=== PATIENT | male | born 1940 | race African-American/Black ===

== ENCOUNTER 2024-04-05 15:41 | Inpatient (IN) ==
--- NOTE | 2024-04-05 15:52 | ED Triage Note ---
Date of Service April 05, 2024 Provider in Triage Author: Cody Perez History of Present Illness This patient was briefly evaluated while in triage. An abbreviated physical exam was performed. This patient is a 83-year-old Male, history of congestive heart failure and atrial fibrillation, who presents to the ED for evaluation of ongoing shortness of breath that has worsened over the past 4 nights. The patient reports that he was admitted 2 months ago for heart failure. Patient does not wear any oxygen at home. The patient is on a diuretic. The patient had a chest x-ray on Tuesday. The does have chest x-ray report, showing dense opacification and possible collapse of the right middle lobe. There were also dense opacification throughout the majority of the right lower lobe with air bronchograms. There is mild to moderate right pleural effusion. CT scan of the chest was recommended. Patient had a cardiac cath performed in August that was normal, with echo showing cardiomyopathy. Physical Exam CONSTITUTIONAL: Healthy and well nourished. Patient does not appear in any acute distress. HEENT: No scleral icterus or conjunctival injection. RESPIRATORY: Decreased breath sounds on the right side. CARDIOVASCULAR: Regular rate and rhythm with no murmurs, rubs or gallops. GASTROINTESTINAL: Bowel sounds present in all quadrants. Abdomen is soft and nontender to palpation. MUSCULOSKELETAL: Full range of motion of all joints without discomfort. No significant peripheral edema noted. INTEGUMENTARY: No rash or other significant dermatologic conditions noted. HEMATOLOGIC: No ecchymosis or petechiae. PSYCHIATRIC: Positive affect. NEUROLOGIC: No focal neurologic deficits noted. Initial orders for labs and / or imaging were placed and patient was placed in the waiting area until a bed is available. Please see further documentation for the full ED course.
[2024-04-05 16:25] LABS: Basophils # (auto) 0.02 K/uL (0.00-0.20); Basophils % (auto) 0.4 %; Eosinophils # (auto) 0.03 K/uL (0.00-0.50); Eosinophils % (auto) 0.6 %; Hematocrit (blood only) 47.4 % (42.0-52.0); Hemoglobin 16.8 g/dl (14.0-18.0); Immature Granulocytes # (auto) 0.01 K/uL (0.01-0.20); Immature Granulocytes % (auto) 0.2 %; Lymphocytes # (auto) 0.78 K/uL (1.20-3.40); Lymphocytes % (auto) 14.3 %; Mean Corpuscular Hemoglobin 29.5 pg (25.0-34.0); Mean Corpuscular Hgb Conc 35.4 g/dL (32.0-36.0); Mean Corpuscular Volume 83.3 fL (80.0-100.0); Mean Platelet Volume 11.4 fL (9.4-12.4); Monocytes % (auto) 7.3 %; Neutrophils # (auto) 4.21 K/uL (1.40-6.50); Neutrophils % (auto) 77.2 %; Nucleated RBC # (auto) 0.02 K/uL (0.00-0.12); Nucleated RBC % (auto) 0.4 %; Platelet Count 167 K/uL (130-400); RDW Coefficient of Variation 17.3 % (11.5-14.5); RDW Standard Deviation 51.6 fL (36.4-46.3); Red Blood Count 5.69 M/uL (4.70-6.10); White Blood Count 5.45 K/ul (4.8-10.8)
[2024-04-05 16:42] LABS: Alanine Aminotransferase 35 U/L (7-52); Albumin Globulin Ratio 1.7 (0.9-2); Albumin Level 3.8 gm/dl (3.4-5.0); Alkaline Phosphatase 134 U/L (34-104); Anion Gap 7 (3-11); Aspartate Aminotransferase 39 U/L (13-39); BUN Creatinine Ratio 18.8 (10-20); Bilirubin,Total 1.2 mg/dl (0.2-1.0); Blood Urea Nitrogen 40 mg/dl (6-23); Carbon Dioxide 28 mmol/L (21-32); Chloride 98 mmol/L (98-107); Globulin 2.3 gm/dl (2.5-4.0); Glucose 124 mg/dl (70-99(Fasting)); Magnesium 2.1 mg/dl (1.7-2.4); Potassium 4.5 mmol/L (3.5-5.1); Sodium 133 mmol/L (136-145); Total Protein 6.1 gm/dl (6.0-8.3)
[2024-04-05 16:53] LABS: INR 1.1 (0.9-1.1); Partial Thromboplastin Ratio 1.1; Partial Thromboplastin Time 29 Seconds (21-31); Prothrombin Time 12.2 Seconds (9.0-12.0); Troponin I High Sensitivity 50.9 pg/ml (0-20)
--- NOTE | 2024-04-05 17:27 | CT Scan Report ---
EXAMINATION: Abdomen and pelvis CT without CLINICAL HISTORY: Chest pain, CHF PRIORS: None TECHNIQUE: Contiguous axial images were obtained through the abdomen and pelvis without the use of intravenous contrast. Sagittal and coronal reformations are supplied. FINDINGS: Large bilateral pleural effusions present at the edge of the [id number], right greater than left. Anasarca noted. Evaluation of solid organs is limited without the use of intravenous contrast. Allowing for this, the liver has heterogeneous appearance with possible nodular margin which could suggest cirrhosis. Mild ascites is present. The gallbladder contains high density material and is not further characterized. The pancreas is atrophic and unremarkable. Spleen, stomach and adrenals are morphologically unremarkable. Moderate atherosclerotic disease of the abdominal aorta. Kidneys are atrophic with no hydronephrosis. Moderate circumferential urinary bladder wall thickening is present with perivesicular inflammatory change. Small amount of free fluid present in the pelvis. Chest CT without A moderate amount of formed stool present in the colon. No dilated loops of bowel or pericolonic inflammatory change. No significant diverticulosis. A discrete appendix is not identified. Small bilateral inguinal hernias containing fat. In bone windows, moderate osseous demineralization noted. Advanced degenerative change throughout the lumbar spine with lordotic straightening. No high-grade compression fracture. IMPRESSION: 1. CT features which may suggest hepatic cirrhosis with mild ascites and diffuse body wall edema/anasarca. 2. Circumferential urinary bladder wall thickening with perivesicular inflammatory change which could represent acute cystitis in the proper clinical setting. 3. Large bilateral pleural effusions. Chest CT dictated under separate heading. Electronically signed by Jael Gilliland 04-05-2024 5:26 PM
--- NOTE | 2024-04-05 17:28 | CT Scan Report ---
EXAMINATION: Chest CT without CLINICAL HISTORY: Chest pain, CHF, abnormal chest x-ray COMPARISON: None TECHNIQUE: Contiguous axial images were obtained through the chest without the use of intravenous contrast. Sagittal and coronal reformations are supplied. FINDINGS: Large right and moderate left pleural effusions are present. Compressive atelectasis is noted. Bilateral lungs upper lobes are unremarkable. Heart size is moderately enlarged. A left-sided aortic arch is present with moderate atherosclerotic disease of the aorta and coronary arteries. A trace pericardial effusion noted. The trachea and mainstem bronchi are patent. No radiopaque foreign body. No adenopathy in the chest. Gas present in the esophagus lumen. Body wall edema/anasarca is present. No supraclavicular or axillary adenopathy. Fluid surrounding the right shoulder, likely degenerative change with [id number] appearance of the glenohumeral joint. In bone windows mild kyphosis and osseous demineralization. Multilevel anterior bridging osteophytes noted. No fracture or pneumothorax. IMPRESSION: 1. Large right and moderate left pleural effusions with compressive atelectasis. 2. Moderate enlargement of the heart with aortic and coronary artery atherosclerotic disease. 3. Anasarca. Electronically signed by Jael Gilliland 04-05-2024 5:26 PM
--- NOTE | 2024-04-05 18:52 | Emergency Department Note ---
Impression & Plan CHF exacerbation, Bilateral pleural effusion, Acute dyspnea, Advanced cirrhosis of liver, Anasarca, CKD (chronic kidney disease) ED Provider Note NAME: TED ROGERS AGE: 83 SEX: M : 1940 ARRIVES VIA: Walk-In INFORMANT: Patient, ED PROVIDER(S): Mable Vila MD CHIEF COMPLAINT: Shortness of breath HPI: This is a 83-year-old male presenting for shortness breath. Patient with history of CHF with EF 20 to 30%, CKD, cirrhosis. Notes over the past 4 nights he is at worsening shortness of breath produce had a cough about 1 month. Had an x-ray that showed a pleural effusion. He came to the hospital as he had worsening shortness of breath, orthopnea and exertional dyspnea. He is noted leg swelling bilaterally as well. ROS: See above HPI for pertinent positives & negatives. A total of 10 systems reviewed and were otherwise negative. PAST MEDICAL HISTORY: See Below PAST SURGICAL HISTORY: See Below FAMILY HISTORY: See Below SOCIAL HISTORY: See Below HOME MEDICATIONS: See Below ALLERGIES: See Below VITALS: See Below PHYSICAL EXAMINATION: General: Chronically unwell appearing Head: Normocephalic and atraumatic Eyes: Normal inspection, extraocular muscles intact Ear, nose, throat: Normal external exam Neck: Normal range of motion Respiratory: lungs clear to auscultation bilaterally Cardiovascular: Regular rate/rhythm, no murmur GI: soft, nontender, no guarding or rebound Extremities: nontender, moves all extremities, slight edema to bilateral lower extremities Neuro: The patient awake and alert, appropriately conversive, no focal deficits, symmetric faces Skin: Warm, dry, and intact MEDICAL DECISION MAKING: This is an 83-year-old male presenting for shortness of breath. Patient had CT imaging ordered at triage. Blood was also ordered at this time. -No leukocytosis or anemia. He slightly hyponatremic at 133, creatinine is 2.13, previous baseline is 2.4 as per family. Otherwise his troponin is elevated at 50.9. His BNP is higher than max limit at over 4700. Urinalysis revealed no signs of UTI -CT imaging of the chest reveals large bilateral pleural effusions as well as moderate enlargement of the heart with aortic and coronary artery atherosclerosis,anasarca -CT of the abdomen/pelvis revealed cirrhosis with anasarca -Patient likely has increased short of breath due to CHF as well as pleural effusions and anasarca. Will admit for further workup. Care discussed Dr. Butler for admission. Differential diagnosis: ACS, PE, CHF, pleural effusions, URI, cirrhosis Independent History obtained from: Diagnostics interpreted by me: ECG: ECG independently interpreted by me with atrial fibrillation at a rate of 85 normal QRS, normal QTc, no ST segment elevations consistent with STEMI criteria Cardiac Monitoring: An order was placed for continuous cardiac monitoring. The monitor shows a rate of 68 with sinus rhythm. Past Med/Surg History Problem List (Updated 04/06/24 @ 01:26 by Mable Vila MD) CKD (chronic kidney disease) (Acute) Anasarca (Acute) Advanced cirrhosis of liver (Acute) Acute dyspnea (Acute) Bilateral pleural effusion (Acute) CHF exacerbation (Acute) Medical History (Updated 04/06/24 @ 01:26 by Mable Vila MD) CHF (congestive heart failure) HTN (hypertension) with goal to be determined Atrial fibrillation Surgical History (Updated 04/05/24 @ 19:50 by Braulio Butler MD) Status post lumbar spine operative procedure for decompression of spinal cord Social History Smoking Status: Never smoker Hx Alcohol Use: No Hx Substance Use: No Preferred Language: [place] Communication Ability: Effective Clinical Support Manager Required: No Beliefs That Will Affect Care: None Current Living Situation: Spouse Current Living Situation Comment: lives at home with Other Information That Helps Us Care for You: No Feels Safe at Home: Yes Safety Concerns: Feels Safe At This Time Assistive Devices: Walker Allergies Allergies Allergy/AdvReac Type Severity Reaction Status Date / Time bee venom protein (honey bee) Allergy SKIN WELTS Verified 04/05/24 18:53 Home Meds Home Medications Medication Instructions Recorded Confirmed apixaban 2.5 mg tablet (Eliquis) 2.5 mg PO BID 04/05/24 04/05/24 bumetanide 1 mg tablet 1 mg PO QAM 04/05/24 04/05/24 metoprolol succinate 50 mg 50 mg PO TID 04/05/24 04/05/24 tablet,extended release 24 hr sacubitril 49 mg-valsartan 51 mg 0.5 tab PO BID 04/05/24 04/05/24 tablet (Entresto) Results & Data (ED) Vital Signs Vital Signs - 24 hr 04/05/24 15:47 04/05/24 18:02 04/05/24 18:02 Temperature 36.9 C Temperature Source Temporal Artery Scan Pulse Rate 102 H Pulse Rate [Apical] 85 Respiratory Rate 16 19 Respiratory Effort / Characteristics Non-Labored Non-Labored Spontaneous Respiratory Depth Normal Normal Respiratory Pattern Regular Blood Pressure 123/94 Blood Pressure [Right Arm] 109/93 Blood Pressure Mean 103 Blood Pressure Mean [Right Arm] 98 Blood Pressure Position [Right Arm] Pulse Oximetry 98 97 97 Oxygen Delivery Method Room Air Room Air Room Air Sepsis Recent Fever Within 48 Hours No Sepsis New/Unexplained Change in Mental Status N/A Sepsis Action Taken by Nursing No Action Required 04/05/24 18:02 04/05/24 18:05 04/05/24 18:43 Temperature Temperature Source Pulse Rate 81 91 H Pulse Rate [Apical] 79 Respiratory Rate 18 15 Respiratory Effort / Characteristics Non-Labored Spontaneous Respiratory Depth Normal Respiratory Pattern Regular Blood Pressure Blood Pressure [Right Arm] 113/96 Blood Pressure Mean Blood Pressure Mean [Right Arm] 101 Blood Pressure Position [Right Arm] Semi-fowlers Pulse Oximetry 96 92 Oxygen Delivery Method Room Air Room Air Sepsis Recent Fever Within 48 Hours Sepsis New/Unexplained Change in Mental Status Sepsis Action Taken by Nursing Laboratory Data 04/05/24 16:08 04/05/24 16:08 Lab Results 04/05/24 04/05/24 Range/Units 16:08 18:39 WBC 5.45 (4.8-10.8) K/ul RBC 5.69 (4.70-6.10) M/uL Hgb 16.8 (14.0-18.0) g/dl Hct 47.4 (42.0-52.0) % MCV 83.3 (80.0-100.0) fL MCH 29.5 (25.0-34.0) pg MCHC 35.4 (32.0-36.0) g/dL RDW Std Deviation 51.6 H (36.4-46.3) fL RDW Coeff of Ilya 17.3 H (11.5-14.5) % Plt Count 167 (130-400) K/uL MPV 11.4 (9.4-12.4) fL Immature Gran % (Auto) 0.2 % Neut % (Auto) 77.2 % Lymph % (Auto) 14.3 % [place] % (Auto) 7.3 % Eos % (Auto) 0.6 % Baso % (Auto) 0.4 % Neut # (Auto) 4.21 (1.40-6.50) K/uL Lymph # (Auto) 0.78 L (1.20-3.40) K/uL [place] # (Auto) 0.40 (0.11-0.59) K/uL Eos # (Auto) 0.03 (0.00-0.50) K/uL Baso # (Auto) 0.02 (0.00-0.20) K/uL Immature Gran # (Auto) 0.01 (0.01-0.20) K/uL Absolute Nucleated RBC 0.02 (0.00-0.12) K/uL Nucleated RBC % (auto) 0.4 % PT 12.2 H (9.0-12.0) Seconds INR 1.1 (0.9-1.1) APTT 29 (21-31) Seconds PTT Ratio 1.1 Sodium 133 L (136-145) mmol/L Potassium 4.5 (3.5-5.1) mmol/L Chloride 98 (98-107) mmol/L Carbon Dioxide 28 (21-32) mmol/L Anion Gap 7 (3-11) BUN 40 H (6-23) mg/dl Creatinine 2.13 H (0.6-1.4) mg/dl Est Cr Clr Drug Dosing Not Reportable eGFR 30.14 BUN/Creatinine Ratio 18.8 (10-20) Glucose 124 H (70-99(Fasting)) mg/dl Calcium 9.0 (8.6-10.3) mg/dl Magnesium 2.1 (1.7-2.4) mg/dl Total Bilirubin 1.2 H (0.2-1.0) mg/dl AST 39 (13-39) U/L ALT 35 (7-52) U/L Alkaline Phosphatase 134 H (34-104) U/L Troponin I High Sens 50.9 H* 61.5 H* D (0-20) pg/ml B-Natriuretic Peptide > 4700 H (0-100) pg/ml Total Protein 6.1 (6.0-8.3) gm/dl Albumin 3.8 (3.4-5.0) gm/dl Globulin 2.3 L (2.5-4.0) gm/dl Albumin/Globulin Ratio 1.7 (0.9-2) Administered Medications Metoprolol Succinate (Metoprolol Succ 50mg Ext Rel Tab) 50 mg PO BID ADAM Stop: 05/05/24 22:04 Last Admin: 04/05/24 23:39 Dose: Not Given Documented By: SANTIAGO Discontinued Medications Furosemide (Furosemide 40 Mg/4 Ml Vial) 40 mg IV ONE ONE Stop: 04/05/24 19:24 Last Admin: 04/05/24 19:31 Dose: 40 mg Documented By: BILL Imaging Data Radiologist's Impression: Abdomen/Pelvis CT 04/05/24 16:52 EXAMINATION: Abdomen and pelvis CT without CLINICAL HISTORY: Chest pain, CHF PRIORS: None TECHNIQUE: Contiguous axial images were obtained through the abdomen and pelvis without the use of intravenous contrast. Sagittal and coronal reformations are supplied. FINDINGS: Large bilateral pleural effusions present at the edge of the [id number], right greater than left. Anasarca noted. Evaluation of solid organs is limited without the use of intravenous contrast. Allowing for this, the liver has heterogeneous appearance with possible nodular margin which could suggest cirrhosis. Mild ascites is present. The gallbladder contains high density material and is not further characterized. The pancreas is atrophic and unremarkable. Spleen, stomach and adrenals are morphologically unremarkable. Moderate atherosclerotic disease of the abdominal aorta. Kidneys are atrophic with no hydronephrosis. Moderate circumferential urinary bladder wall thickening is present with perivesicular inflammatory change. Small amount of free fluid present in the pelvis. Chest CT without A moderate amount of formed stool present in the colon. No dilated loops of bowel or pericolonic inflammatory change. No significant diverticulosis. A discrete appendix is not identified. Small bilateral inguinal hernias containing fat. In bone windows, moderate osseous demineralization noted. Advanced degenerative change throughout the lumbar spine with lordotic straightening. No high-grade compression fracture. IMPRESSION: 1. CT features which may suggest hepatic cirrhosis with mild ascites and diffuse body wall edema/anasarca. 2. Circumferential urinary bladder wall thickening with perivesicular inflammatory change which could represent acute cystitis in the proper clinical setting. 3. Large bilateral pleural effusions. Chest CT dictated under separate heading. Electronically signed by Jael Gilliland 04-05-2024 5:[address] 04/05/24 16:52 EXAMINATION: Chest CT without CLINICAL HISTORY: Chest pain, CHF, abnormal chest x-ray COMPARISON: None TECHNIQUE: Contiguous axial images were obtained through the chest without the use of intravenous contrast. Sagittal and coronal reformations are supplied. FINDINGS: Large right and moderate left pleural effusions are present. Compressive atelectasis is noted. Bilateral lungs upper lobes are unremarkable. Heart size is moderately enlarged. A left-sided aortic arch is present with moderate atherosclerotic disease of the aorta and coronary arteries. A trace pericardial effusion noted. The trachea and mainstem bronchi are patent. No radiopaque foreign body. No adenopathy in the chest. Gas present in the esophagus lumen. Body wall edema/anasarca is present. No supraclavicular or axillary adenopathy. Fluid surrounding the right shoulder, likely degenerative change with [id number] appearance of the glenohumeral joint. In bone windows mild kyphosis and osseous demineralization. Multilevel anterior bridging osteophytes noted. No fracture or pneumothorax. IMPRESSION: 1. Large right and moderate left pleural effusions with compressive atelectasis. 2. Moderate enlargement of the heart with aortic and coronary artery atherosclerotic disease. 3. Anasarca. Electronically signed by Jael Gilliland 04-05-2024 5:26 PM Discharge Plan Visit Data Chief Complaint: Cardiac Assessment Stated Complaint: SOB, AFIB, WEAK, CANNOT STAND ED Provider: Mable Vila Discharge Problem: CHF exacerbation, Bilateral pleural effusion, Acute dyspnea, Advanced cirrhosis of liver, Anasarca, CKD (chronic kidney disease) Patient Disposition: Admitted As Inpatient Discharge Instructions Interventions: ED Discharge Assessment Last Done: 04/05/24 21:39
[2024-04-05] MEDS ORDERED: POLYETHYLENE (MIRALAX) 17 GM PACK PO PRN (19:25)
[2024-04-05] MEDS: FUROSEMIDE 40 MG/4 ML VIAL IV ONE (19:31)
--- NOTE | 2024-04-05 19:35 | History & Physical Report ---
Date of Service April 05, 2024 Assessment & Plan (1) CHF (congestive heart failure): Plan: Acute on chronic HFrEF Pleural effusion b/l Afib Reportedly diagnosed with Afib in August 2023 on Eliquis, metoprolol previously on amiodarone - reportedly stopped d/t perceived weakness, LE edema worsening EF 15% in August 2023 --> improved to 25-30% in October, on metoprolol succinate, entresto, bumex Presents w/ b/l pl. effusion and worsening shortness of breath hold po bumex, start IV lasix hold eliquis for now, consider poss. thoracentesis - will discuss w/ cardiology and pulmonary med. hold entresto for now obtain BNP repeat CXR AM closely monitor on tele Echo ordered Cardiology consult monitor I/Os, daily weight replace electrolytes as needed will also obtain fasting lipid panel and A1c Hx SHEILA - cpap hs CKD Cr worsening over time pt does not follow w/ nephrology Cr 2.1 on 02/27 currently 2.1 - cont. to closely monitor renal function while diuresing History of Present Illness Chief Complaint: Shortness of breath, CHF, pl. effusion Primary Care Provider: Perri Cortez Pt is an 83 yo M w/ hx of HTN, Afib, CHF, SHEILA who presents with worsening shortness of breath, weakness and found to have pleural effusions on imaging in ED . Pt denies any fever, chills, chest pain. He reports some cough, that is not productive. Family obtained from patient and his who also has some printed medical records with her. Reportedly pt has had HTN for years but then in august 2023 developed Afib and was hospitalized in [place] 08/27 to 2023. Pt reports they tried to cardiovert him but not successful and he has stayed in [facility] ever since. Cardiac cath was done but no stents required per and the pt. At that time EF was found to be 15%. He was discharged on Eliquis, metoprolol, digoxin and lasix. He then followed up with cardiology in [place] in October and his EF reportedly improved to 25-30%. Pt changed cardiology group and started to follow w/ Dr. Carter. He was started on amiodarone and Entresto, spironolactone. Pt also had sleep study done and reportedly was diagnosed w/ severe SHEILA and started using CPAP. Pt stopped taking spironolactone d/t side effects. He also reports increased weakness and LE edema from amiodarone - and so that was stopped by cardiology PA on 03/01. Pt also reports that lately his HR was elevated and so he was taking metoprolol succinate 50 mg TID instead of BID. Throughout this his renal function also has been affected. Per records review on 09/15 Cr was 1.4, then 01/18 it was 1.7 and on 02/27 it was 2.1. Pt is supposed to use CPAP for SHEILA but reports he has been having difficulty tolerating it, so for 3-4 weeks he would use it on and off and then for past 4 days he would not use it at all. Pt follows w/ PCP Dr. Cortez and had CXR done on Tuesday which reportedly showed dense opacification and poss. collapse of RML, and R pl. effusion. CT chest / abdomen was planned to be done as outpt however pt had progressive shortness of breath and so presented in the ED. CT chest and abdomen/pelvis was obtained in the ED today. Allergies Allergy/AdvReac Type Severity Reaction Status Date / Time bee venom protein (honey bee) Allergy SKIN WELTS Verified 04/05/24 18:53 Home Medications Medication Instructions Recorded Confirmed Type apixaban 2.5 mg tablet (Eliquis) 2.5 mg PO BID 04/05/24 04/05/24 History bumetanide 1 mg tablet 1 mg PO QAM 04/05/24 04/05/24 History metoprolol succinate 50 mg 50 mg PO TID 04/05/24 04/05/24 History tablet,extended release 24 hr sacubitril 49 mg-valsartan 51 mg 0.5 tab PO BID 04/05/24 04/05/24 History tablet (Entresto) Past Med/Surg History Problem List Medical History (Updated 04/05/24 @ 19:49 by Braulio Butler MD) CHF (congestive heart failure) HTN (hypertension) with goal to be determined Atrial fibrillation Surgical History (Updated 04/05/24 @ 19:50 by Braulio Butler MD) Status post lumbar spine operative procedure for decompression of spinal cord Social History Smoking Status: Never smoker Preferred Language: Yakut Feels Safe at Home: Yes Review of Systems Review of Systems: All systems reviewed & are unremarkable except as noted in Subjective Physical Exam Constitutional: WD/WN, vitals as above (obese M) Eyes: PERRL, conjunctivae normal, anicteric sclerae ENMT: external ear and nose normal, oropharynx normal Neck: + thick neck Respiratory: Auscultation: + crackles (at bases) Cardiovascular: Rate/Rhythm: + irregularly irregular Gastrointestinal (Abdomen): Inspection/Auscultation: normal bowel sounds Percussion/Palpation: abdomen soft (obese); abdomen nontender Musculoskeletal: LE edema, b/l, moves extremities Skin: no rashes, warm and dry Neurologic: PERRL, EOMI, accommodation nl, no face palsy, no dysarthria Psychiatric: A+Ox3, euthymic affect Lymphatic: + lymphedema Results & Data Results & Data Vital Signs (Past 12 Hours) Vital Signs Temp Pulse Pulse Resp BP BP Pulse Ox 04/05/24 18:43 79 15 113/96 92 04/05/24 18:05 91 H 04/05/24 18:02 81 18 96 04/05/24 18:02 85 19 109/93 97 04/05/24 18:02 97 04/05/24 15:47 36.9 C 102 H 16 123/94 98 O2 Del Method 04/05/24 18:43 Room Air 04/05/24 18:05 04/05/24 18:02 Room Air 04/05/24 18:02 Room Air 04/05/24 18:02 Room Air 04/05/24 15:47 Room Air Laboratory Results 04/05/24 04/05/24 Range/Units 18:39 16:08 WBC 5.45 (4.8-10.8) K/ul RBC 5.69 (4.70-6.10) M/uL Hgb 16.8 (14.0-18.0) g/dl Hct 47.4 (42.0-52.0) % MCV 83.3 (80.0-100.0) fL MCH 29.5 (25.0-34.0) pg MCHC 35.4 (32.0-36.0) g/dL RDW Std Deviation 51.6 H (36.4-46.3) fL RDW Coeff of Ilya 17.3 H (11.5-14.5) % Plt Count 167 (130-400) K/uL MPV 11.4 (9.4-12.4) fL Immature Gran % (Auto) 0.2 % Neut % (Auto) 77.2 % Lymph % (Auto) 14.3 % [place] % (Auto) 7.3 % Eos % (Auto) 0.6 % Baso % (Auto) 0.4 % Neut # (Auto) 4.21 (1.40-6.50) K/uL Lymph # (Auto) 0.78 L (1.20-3.40) K/uL [place] # (Auto) 0.40 (0.11-0.59) K/uL Eos # (Auto) 0.03 (0.00-0.50) K/uL Baso # (Auto) 0.02 (0.00-0.20) K/uL Immature Gran # (Auto) 0.01 (0.01-0.20) K/uL Absolute Nucleated RBC 0.02 (0.00-0.12) K/uL Nucleated RBC % (auto) 0.4 % PT 12.2 H (9.0-12.0) Seconds INR 1.1 (0.9-1.1) APTT 29 (21-31) Seconds PTT Ratio 1.1 Sodium 133 L (136-145) mmol/L Potassium 4.5 (3.5-5.1) mmol/L Chloride 98 (98-107) mmol/L Carbon Dioxide 28 (21-32) mmol/L Anion Gap 7 (3-11) BUN 40 H (6-23) mg/dl Creatinine 2.13 H (0.6-1.4) mg/dl Est Cr Clr Drug Dosing Not Reportable eGFR 30.14 BUN/Creatinine Ratio 18.8 (10-20) Glucose 124 H (70-99(Fasting)) mg/dl Calcium 9.0 (8.6-10.3) mg/dl Magnesium 2.1 (1.7-2.4) mg/dl Total Bilirubin 1.2 H (0.2-1.0) mg/dl AST 39 (13-39) U/L ALT 35 (7-52) U/L Alkaline Phosphatase 134 H (34-104) U/L Troponin I High Sens 61.5 H* D 50.9 H* (0-20) pg/ml Total Protein 6.1 (6.0-8.3) gm/dl Albumin 3.8 (3.4-5.0) gm/dl Globulin 2.3 L (2.5-4.0) gm/dl Albumin/Globulin Ratio 1.7 (0.9-2) Diagnostic Findings CT chest IMPRESSION: 1. Large right and moderate left pleural effusions with compressive atelectasis. 2. Moderate enlargement of the heart with aortic and coronary artery atherosclerotic disease. 3. Anasarca. CT abdomen/pelvis IMPRESSION: 1. CT features which may suggest hepatic cirrhosis with mild ascites and diffuse body wall edema/anasarca. 2. Circumferential urinary bladder wall thickening with perivesicular inflammatory change which could represent acute cystitis in the proper clinical setting. 3. Large bilateral pleural effusions. Chest CT dictated under separate heading. Code Status & VTE Plan VTE Prophylaxis Plan VTE Prophylaxis will be ordered: Yes
[2024-04-05 20:32] LABS: Appearance Urine Clear (Clear); Bilirubin Urine Negative (Negative); Blood Urine Negative (Negative); Color Urine Yellow; Glucose Urine UA Negative (Negative); Ketones Urine Negative (Negative); Leukocyte Esterase Urine Negative (Negative); Nitrite Urine Negative (Negative); Protein Urine Negative (Negative); Urobilinogen Urine Negative (Negative); pH Urine 5.5 (4.5-7.5)
[2024-04-05] MEDS: METOPROLOL SUCC 50MG EXT REL TAB PO SCH (23:39)
[2024-04-06 06:21] LABS: Hematocrit (blood only) 46.6 % (42.0-52.0); Hemoglobin 16.1 g/dl (14.0-18.0); Mean Corpuscular Hemoglobin 28.8 pg (25.0-34.0); Mean Corpuscular Hgb Conc 34.5 g/dL (32.0-36.0); Mean Corpuscular Volume 83.2 fL (80.0-100.0); Mean Platelet Volume 12.7 fL (9.4-12.4); Platelet Count 184 K/uL (130-400); RDW Coefficient of Variation 16.8 % (11.5-14.5); RDW Standard Deviation 50.3 fL (36.4-46.3); White Blood Count 4.26 K/ul (4.8-10.8)
[2024-04-06 06:41] LABS: BUN Creatinine Ratio 18.6 (10-20); Calcium 8.6 mg/dl (8.6-10.3); Chol HDL Ratio 2.6 (0-5); Creatinine Clr Calc Pharmacy 31.5 ml/min; Phosphorus 3.3 mg/dl (2.5-4.9); Potassium 4.2 mmol/L (3.5-5.1)
[2024-04-06 07:05] LABS: Estimated Average Glucose 148 mg/dl; Hemoglobin A1C 6.8 % (4.5-5.6)
--- OUTSIDE RECORDS SUMMARY | 2024-04-06 07:35 | External Medical Summary | Continuity of Care Document ---
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 Role Phone Radha Cortez Primary Care Physician [phone] Encounter [facility] [id number] Date(s): 02/02/24 - 02/02/24 [facility] [address], [address] [place] [address] [phone] Encounter Diagnosis Chronic systolic CHF (congestive heart failure)(Discharge Diagnosis) - 02/02/24 Atrial fibrillation(Discharge Diagnosis) - 02/02/24 Dilated cardiomyopathy(Discharge Diagnosis) - 02/02/24 Dyspnea(Discharge Diagnosis) - 02/02/24 Hypertension(Discharge Diagnosis) - 02/02/24 NICM (nonischemic cardiomyopathy)(Discharge Diagnosis) - 02/02/24 SHEILA (obstructive sleep apnea)(Discharge Diagnosis) - 02/02/24 IgM kappa monoclonal gammopathy(Discharge Diagnosis) - 01/23/24 Severe obstructive sleep apnea(Discharge Diagnosis) - 02/02/24 Discharge Disposition: Home or Self Care Attending Physician: DO Carter Jason D Allergies, Adverse Reactions, Alerts Substance Criticality Severity Reaction Reaction Severity Status Bee stings unk Active Assessment and Plan Extracted from: Title:Cardiology Office Visit Note Author:DO Carter Jason D Date:02/02/24 1.Atrial fibrillation 2.Chronic systolic CHF (congestive heart failure) 3.Dilated cardiomyopathy 4.Dyspnea 5.Hypertension 6.NICM (nonischemic cardiomyopathy) 7.SHEILA (obstructive sleep apnea) 8.IgM kappa monoclonal gammopathy His heart failure status remains tenuous. I think we need to treat his sleep apnea first which will unload his right ventricle and improve LV filling and subsequent renal perfusion and diuresis. Will arrange for home CPAP but he might need a sleep medicine consult given his degree of hypoxemia on his sleep study. Will change on his Lasix from 60 mg a day to Bumex 1 mg a day and we discussed only adjusting the dose of his weight is up 2 to 3 pounds in 24 to 48 hours.. Once we can treat his sleep apnea there is a better chance getting a lot of atrial fibrillation more importantly maintaining sinus rhythm afterwards to help his heart failure symptoms. He will return in 4 weeks to see Milagros to see how he is doing the CPAP. If he is had a dramatic improvement with CPAP he may not need cardioversion. 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 We discussed the importance of being compliant with his medications and taking them as they are prescribed and also he needs to be very compliant with his anticoagulation with the potential for cardioversion in the near future. Medications acetaminophen Start: 12/23/23 12:58:00 PM EDT Start Date: 12/23/23 Status: Ordered amiodarone 200 mg oral tablet Start: 12/23/23 1:57:00 PM EDT, 1 tab, PO, bid, Disp# 60 tab, Refills: 3, Pharmacy: [id number] Start Date: 12/23/23 Status: Ordered Bumex 1 mg oral tablet Start: 02/02/24 3:26:00 PM EDT, 1 tab, PO, Daily, Disp# 90 tab, Refills: 3, Pharmacy: [id number] Start Date: 02/02/24 Status: Ordered doxazosin 4 mg oral tablet Start: 12/23/23 9:42:00 AM EDT, 1 tab, PO, Daily, 1 xweekly in the evening Start Date: 12/23/23 Status: Ordered Eliquis 2.5 mg oral tablet Start: 12/23/23 9:41:00 AM EDT, 1 tab, PO, bid Start Date: 12/23/23 Status: Ordered Entresto 49 mg-51 mg oral tablet Start: 12/23/23 1:56:00 PM EDT, 1 tab, PO, bid, Disp# 60 tab, Refills: 11, Pharmacy: [id number] Start Date: 12/23/23 Status: Ordered ketorolac 0.4% ophthalmic solution Start: 12/23/23 9:40:00 AM EDT, 1 drop, both eyes, qid, PRN: as needed for pain Start Date: 12/23/23 Status: Ordered metoprolol succinate 50 mg oral tablet, extended release Start: 12/23/23 9:41:00 AM EDT, See Instructions, 50mg in am and 25mg in pm Start Date: 12/23/23 Status: Ordered spironolactone 25 mg oral tablet Start: 01/13/24 4:17:00 PM EDT, 1 tab, PO, Daily, Disp# 90 tab, Refills: 3, Pharmacy: [id number] Start Date: 01/13/24 Stop Date: 01/07/25 Status: Ordered tamsulosin 0.4 mg oral capsule Start: 12/23/23 9:42:00 AM EDT, 1 cap, PO, Daily, alternate with doxasozin Start Date: 12/23/23 Status: Ordered Vitamin D3 Start: 12/23/23 9:42:00 AM EDT Start Date: 12/23/23 Status: Ordered Mental Status 02/02/24 Barriers to Learning one year None evide nt Mandatory Health Literacy Documentation Yes Health Literacy Communication Barriers N ever Primary Language Maltese Problem List Condition Confirmation Course Effective Dates Status H ealth Status Informant Atrial fibrillation Confirmed Active NICM (nonischemic cardiomyopathy) Confirmed Active Chronic systolic CHF (congestive heart failure) Confirmed Active Dilated cardiomyopathy Confirmed Active Dyspnea Confirmed Active Hypertension Confirmed Active SHEILA (obstructive sleep apnea) Confirmed Active Diagnosis Diagnosis Type Effective Dates Health Status Clinical Service Informant IgM kappa monoclonal gammopathy Discharge Diagnosis 01/23/24 Non-Specified Severe obstructive sleep apnea Discharge Diagnosis 02/02/24 Non-Specified Dilated cardiomyopathy Discharge Diagnosis 02/02/24 Dyspnea Discharge Diagnosis 02/02/24 Chronic systolic CHF (congestive heart failure) Discharge Diagnosis 02/02/24 Hypertension Discharge Diagnosis 02/02/24 NICM (nonischemic cardiomyopathy) Discharge Diagnosis 02/02/24 Atrial fibrillation Discharge Diagnosis 02/02/24 SHEILA (obstructive sleep apnea) Discharge Diagnosis 02/02/24 Vital Signs Most recent to oldest [Reference Range]: 1 Patient Weight 87.7 kg (02/02/24 3:00 PM) Heart Rate 90 bpm (02/02/24 3:00 PM) Blood Pressure 120/84mmHg (02/02/24 3:00 PM) BP Location # 1 Right Arm (02/02/24 3:00 PM) Social History Social History Type Response Smoking Status Former Smoker, quit > 1 yr Sex Male Sex Representation Male (finding) Cardiology Outpatient Note * DO Carter Jason D: PERFORM Event Display: Cardiology Outpt Note Authored Date: [id number] Primary Care Provider MD Diego, Radha Berumen Chief Complaint 6 week f/u sys HF afib History of Present Illness He had a viral illness which exacerbated his heart failure symptoms. He also sounds like he is adjusting his diuretics in his own with worsening prerenal azotemia. He denies any lightheadedness or dizziness. His weight had gone up but has come back down below. He denies any palpitations or fluttering or syncopal Episodes. His appetites been so-so. He has no lower extremity edema. In the interim his sleep study came back with very severe sleep apnea both by AHI and with profound hypoxemia. Review of Systems PMHX: 1. Nonischemic cardiomyopathy with severe left ventricular dysfunction and an EF in the range of 20% 2. Cardiac catheterization at [facility] with minimal epicardial coronary artery disease; wedge pressure of 10 mmHg; pulmonary artery pressure. 42 mmHg over 8 mmHg; RA pressure 2 mmHg: Cardiac output 2.11 L/min; LVEDP of 15 mmHg 3. New atrial fibrillation as of July 2023 (asymptomatic) 4. CKD with a creatinine of 1.4 5. BPH 6. Outside echocardiogram 2023 EF 15 to 20%; global hypokinesis; moderate left atrial enlargement: 7. Longstanding hypertension since his teenage years 8. Severe SHEILA -- AHI 34; O2 sat Carlos 64% with O2 sat <90% 46% of the time 9. 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 [facility]; he notes no more than 1 drink a day previous to July Physical Exam Vitals & Measurements HR:90(Monitored) BP:120/84 SpO2:98% WT:87.700kg(Dosing) WT:87.7kg Patient is awake alert and oriented x3and in no acute distress HEENT:1+ carotid upstrokes, no evidence of carotid bruits LUNGS:Clear to auscultation bilaterally no rales rhonchi or wheezing HEART:Iregular rate and rhythmno appreciable murmurs rubs or gallops ABDOMEN:Soft nontender nondistended positive bowel sounds EXTREMITIES:No evidence of clubbing cyanosis or edema PSYCHIATRIC:Patient's affect appeared appropriate Assessment/Plan 1.Atrial fibrillation 2.Chronic systolic CHF (congestive heart failure) 3.Dilated cardiomyopathy 4.Dyspnea 5.Hypertension 6.NICM (nonischemic cardiomyopathy) 7.SHEILA (obstructive sleep apnea) 8.IgM kappa monoclonal gammopathy His heart failure status remains tenuous. I think we need to treat his sleep apnea first which will unload his right ventricle and improve LV filling and subsequent renal perfusion and diuresis. Will arrange for home CPAP but he might need a sleep medicine consult given his degree of hypoxemiaon his sleep study. Will change on his Lasix from 60 mg a day to Bumex 1 mg a day and we discussed only adjusting the dose of his weight is up 2 to 3 pounds in 24 to 48 hours.. Once we can treat his sleep apnea there is a better chance getting a lot of atrial fibrillation more importantly maintaining sinus rhythm afterwards to help his heart failure symptoms. He will return in 4 weeks to see Milagros to see how he is doing the CPAP. If he is had a dramatic improvement with CPAP he may not need cardioversion. 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 We discussed the importance of being compliant with his medications and taking them as they are prescribed and also he needs to be very compliant with his anticoagulation with the potential for cardioversion in the near future. Problem List/Past Medical History Ongoing Atrial fibrillation Chronic systolic CHF (congestive heart failure) Dilated cardiomyopathy Dyspnea Hypertension NICM (nonischemic cardiomyopathy) SHEILA (obstructive sleep apnea) Medications acetaminophen amiodarone(amiodarone 200 mg oral tablet), 200 mg= 1 tab, PO, bid, 3 refills apixaban(Eliquis 2.5 mg oral tablet), 2.5 mg= 1 tab, PO, bid bumetanide(Bumex 1 mg oral tablet), 1 mg= 1 tab, PO, Daily, 3 refills cholecalciferol(Vitamin D3) doxazosin(doxazosin 4 mg oral tablet), 4 mg= 1 tab, PO, Daily ketorolac ophthalmic(ketorolac 0.4% ophthalmic solution), 1 drop, both eyes, qid, PRN metoprolol(metoprolol succinate 50 mg oral tablet, extended release), See Instructions sacubitril-valsartan(Entresto 49 mg-51 mg oral tablet), 1 tab, PO, bid, 11 refills spironolactone(spironolactone 25 mg oral tablet), 25 mg= 1 tab, PO, Daily, 3 refills tamsulosin(tamsulosin 0.4 mg oral capsule), 0.4 mg= 1 cap, PO, Daily Allergies Bee stingsunk Social History Smoking Status Former Smoker, quit > 1 yr Electronic Signature on File CC: Radha Cortez MD [address] [place] [id number] * Electronically Reviewed/Signed by: Romulo Carter DO Author Signature Dt/Tm:02/02/2024 04:20 PM 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
--- OUTSIDE RECORDS SUMMARY | 2024-04-06 07:35 | External Medical Summary | Continuity of Care Document ---
Author Name Unknown Organization [facility] [address] [facility] Address [address] [place], [place] [id number] Care Team Providers Care Tapper Bit Name Role Phone Radha Cortez Primary Care Physician [phone] Encounter [facility] [id number] Date(s): 01/13/24 - 01/13/[address] [facility] [address], [address] [place] [address] [phone] Encounter Diagnosis Abnormal serum protein test(Discharge Diagnosis) - 01/13/24 Low iron(Discharge Diagnosis) - 01/13/24 Discharge Disposition: Home or Self Care Attending Physician: EBENEZER Shankar Sarah A Allergies, Adverse Reactions, Alerts Substance Criticality Severity Reaction Reaction Severity Status Bee stings unk Active Assessment and Plan Extracted from: Title:Cardiology Office Visit Note Author:EBENEZER [address] rd, Sarah A Date:01/13/24 Impression: 1. Nonischemic cardiomyopathy with severe left ventricular dysfunction and an EF in the range of 20% 2. Cardiac catheterization at [facility] include [facility] beds at [facility] 08/2023 with minimal epicardial coronary artery disease; wedge pressure of 10 mmHg; pulmonary artery pressure. 42 mmHg over 8 mmHg; RA pressure 2 mmHg: Cardiac output 2.11 L/min; LVEDP of 15 mmHg 3. New atrial fibrillation as of July 2023 (asymptomatic), EKG now demonstrating atrial flutter 4. CKD with a creatinine of 1.4 5. BPH 6. Outside echocardiogram 2023 EF 15 to 20%; global hypokinesis; moderate left atrial enlargement: 7. Longstanding hypertension since his teenage years Dr. Gomez has had a weight increase of 2-1/2kg sincehis last visit and has noticed an increase in the swelling in his lower extremities. However he has been taking quite a lot offurosemide and hiskidney function looks quite dry. He is on midrangeEntresto. I recommended he discontinue the Jardiance altogether as he had had some perineal irritation andwe do not want a riskperineal cellulitiswith the use of an SGLT2 inhibitor. I will have himdiscontinue the daily 40 -60 mg of furosemide and add 12.5 mg of spironolactone daily. We had discussedfurosemide dosingin addition to help pull some of the fluid off. I recommend heon 3 days a week of furosemidewith prn dosing. He preferred that we use a as needed dosing scale with20 mgdailyif weight is up 2 pounds in a 24-hour period or 5 pounds in a weekand continue the furosemide until backat his baseline weight. If Dr. Gomez did not want tofollow a three times a week furosemide schedule,I would at least recommend he takea daily furosemide over the next 3 or 4 days to bring his weight back down to baseline. He is also appropriately on metoprolol. He is on amiodaroneto help with his rate control. EKG in the office today shows atrial flutter with a stable QTc. I discussed cardioversionwith him. The hope is that with quaker of his atrial kickhe may have some improvement in his ejection fraction and reduction in his heart failure symptoms. He is reluctant to commit to cardioversion without talking with Dr. Carter in Januaryso we will hold off scheduling for now. He has not had any missed doses of Eliquis since he started it in August. He wasencouraged to maintain a low-sodium diet of less than 2000 mg sodium per day and we discussedreading labels and avoiding adding saltto food. I also reiteratedthe importance of daily weights. His lab work was reviewed. He has M spikeon his serumelectrophoresis. I will have him get light chainsdrawn. Will also have him get a CBC. We reviewed that he has a low iron level and should start p.o. ironsupplementation. He will return to the clinic in 3 weeks Medications acetaminophen Start: 12/23/23 12:58:00 PM EDT Start Date: 12/23/23 Status: Ordered Advil Start: 12/23/23 12:58:00 PM EDT Start Date: 12/23/23 Status: Ordered amiodarone 200 mg oral tablet Start: 12/23/23 1:57:00 PM EDT, 1 tab, PO, bid, Disp# 60 tab, Refills: 3, Pharmacy: [id number] Start Date: 12/23/23 Status: Ordered doxazosin 4 mg oral tablet Start: 12/23/23 9:42:00 AM EDT, 1 tab, PO, Daily, 4 xweekly in the evening Start Date: 12/23/23 Status: Ordered Eliquis 2.5 mg oral tablet Start: 12/23/23 9:41:00 AM EDT, 1 tab, PO, bid Start Date: 12/23/23 Status: Ordered Entresto 49 mg-51 mg oral tablet Start: 12/23/23 1:56:00 PM EDT, 1 tab, PO, bid, Disp# 60 tab, Refills: 11, Pharmacy: [id number] Start Date: 12/23/23 Status: Ordered furosemide 20 mg oral tablet Start: 01/13/24 4:39:00 PM EDT, 1 tab, PO, qMonWedFri, Disp# 90 tab, Refills: 3, may take extra tab for weight gain 2lbs in 24 hours or 5 lbs in a week, other Start Date: 01/13/24 Status: Ordered ketorolac 0.4% ophthalmic solution Start: 12/23/23 9:40:00 AM EDT, 1 drop, both eyes, qid, PRN: as needed for pain Start Date: 12/23/23 Status: Ordered metoprolol succinate 50 mg oral tablet, extended release Start: 12/23/23 9:41:00 AM EDT, 0.5 tab, PO, bid Start Date: 12/23/23 Status: Ordered spironolactone 25 mg oral tablet Start: 01/13/24 4:17:00 PM EDT, 0.5 tab, PO, Daily, Disp# 45 tab, Refills: 3, Pharmacy: [id number] Start Date: 01/13/24 Stop Date: 01/07/25 Status: Ordered tamsulosin 0.4 mg oral capsule Start: 12/23/23 9:42:00 AM EDT, 1 cap, PO, Daily, alternate with doxasozin Start Date: 12/23/23 Status: Ordered Vitamin D3 Start: 12/23/23 9:42:00 AM EDT Start Date: 12/23/23 Status: Ordered Vitron-C 125 mg-65 mg oral tablet Start: 01/02/24 9:22:00 AM EDT, 1 tab, PO, Daily, Disp# 90 tab, Refills: 4, Pharmacy: [id number] Start Date: 01/02/24 Status: Ordered Problem List Condition Confirmation Course Effective Dates Status H ealth Status Informant Atrial fibrillation Confirmed Active NICM (nonischemic cardiomyopathy) Confirmed Active Chronic systolic CHF (congestive heart failure) Confirmed Active Dilated cardiomyopathy Confirmed Active Dyspnea Confirmed Active Hypertension Confirmed Active Diagnosis Diagnosis Type Effective Dates Health Status Cl inical Service Informant Abnormal serum protein test Discharge Diagnosis 01/13/24 Non-Specified Low iron Discharge Diagnosis 01/13/24 Non-Specified Vital Signs Most recent to oldest [Reference Range]: 1 Patient Weight 86.5 kg (01/13/24 3:43 PM) Heart Rate 83 bpm (01/13/24 3:43 PM) Blood Pressure 122/88mmHg (01/13/24 3:43 PM) BP Location # 1 Right Arm (01/13/24 3:43 PM) Social History Social History Type Response Smoking Status Former Smoker, quit > 1 yr Sex Male Sex Representation Male (finding) Cardiology Outpatient Note * EBENEZER Shankar Sarah A: PERFORM Event Display: Cardiology Outpt Note Authored Date: [id number] Primary Care Provider MD Diego, H [place] Chief Complaint 3 week f/u History of Present Illness Dr. Gomez presents for follow up of his history of systolic heart failure and atrial flutter. He presents with his today. He has not weighed himself in the last weekbut does note more swelling in his lower extremities and that his shoes feel tight. Howeverhe did find thatthewalk up 20 stepsin an office buildingthat he frequents was not as difficult as it has been in the past. His also notes that he seems less orthopneic. He has still been occasionally taking the Jardiance. He also has not particularly been paying attention to his salt intake and does add salt when he is cooking. His blurred visionthat he was experiencing on the digoxin has resolved now that he is off as wellas some gait instabilitywhich has resolved. He notes that his mouth is really dry in the morning. He takes somewhere [id number] and 60 mg total of Bumex per day. Review of Systems All other systems reviewed and negative except as discussed in the HPI Physical Exam Vitals & Measurements HR:83(Monitored) BP:122/88 SpO2:98% WT:86.500kg(Dosing) WT:86.5kg Physical Examination General: Alert and oriented, No acute distress. Neck: No jugular venous distention. Respiratory: Lungs are clear to auscultation, Respirations are non-labored. Cardiovascular:Irregular rhythm, No murmur, No edema. Integumentary: Warm, Dry, [place] Neurologic: Alert, Oriented. Cognition and Speech: Speech clear and coherent. Psychiatric: Cooperative, Appropriate mood & affect. Assessment/Plan Impression: 1. Nonischemic cardiomyopathy with severe left ventricular dysfunction and an EF in the range of 20% 2. Cardiac catheterization at [facility] include [facility] beds at the [facility] 08/2023 with minimal epicardial coronary artery disease; wedge pressure of 10 mmHg; pulmonary artery pressure. 42 mmHg over 8 mmHg; RA pressure 2 mmHg: Cardiac output 2.11 L/min; LVEDP of 15 mmHg 3. New atrial fibrillation as of July 2023 (asymptomatic), EKG now demonstrating atrial flutter 4. CKD with a creatinine of 1.4 5. BPH 6. Outside echocardiogram 2023 EF 15 to 20%; global hypokinesis; moderate left atrial enlargement: 7. Longstanding hypertension since his teenage years Dr. Gomez has had a weight increase of 2-1/2kg sincehis last visit and has noticed an increasein the swelling in his lower extremities. However he has been taking quite a lot offurosemide and hiskidney function looks quite dry. He is on midrangeEntresto. I recommended he discontinue the Jardiance altogether as he had had some perineal irritation andwe do not want a riskperineal cellulitiswith the use of an SGLT2 inhibitor. I will have himdiscontinue the daily 40 -60 mg of furosemide and add 12.5 mg of spironolactone daily. We had discussedfurosemide dosingin addition to help pull some of the fluid off. I recommend heon 3 days a week of furosemidewith prn dosing. He preferred that we use a as needed dosing scale with20 mgdailyif weight is up 2 pounds in a 24-hour period or 5 pounds in a weekand continue the furosemide until backat his baseline weight. If Dr. Gomez did not want tofollow a three times a week furosemide schedule,I would at least recommend he takea daily furosemide overthe next 3 or 4 days to bring his weight back down to baseline. He is also appropriately on metoprolol. He is on amiodaroneto help with his rate control. EKG in the office today shows atrial flutter with a stable QTc. I discussed cardioversionwith him. The hope is that with quaker of hisatrial kickhe may have some improvement in his ejection fraction and reduction in his heart failure symptoms. He is reluctant to commit to cardioversion without talking with Dr. Carter in Januaryso we will hold off scheduling for now. He has not had any missed doses of Eliquis since he started it in August. He wasencouraged to maintain a low-sodium diet of less than 2000 mg sodium per day and we discussedreading labels and avoiding adding saltto food. I also reiteratedthe importance of daily weights. His lab work was reviewed. He has M spikeon his serumelectrophoresis. I will have him get light chainsdrawn. Will also have him get a CBC. We reviewed that he has a low iron level and should start p.o. ironsupplementation. He will return to the clinic in 3 weeks Problem List/Past Medical History Ongoing Atrial fibrillation Chronic systolic CHF (congestive heart failure) Dilated cardiomyopathy Dyspnea Hypertension NICM (nonischemic cardiomyopathy) Medications acetaminophen amiodarone(amiodarone 200 mg oral tablet), 200 mg= 1 tab, PO, bid, 3 refills apixaban(Eliquis 2.5 mg oral tablet), 2.5 mg= 1 tab, PO, bid ascorbic acid-carbonyl iron(Vitron-C 125 mg-65 mg oral tablet), 1 tab, PO, Daily, 4 refills cholecalciferol(Vitamin D3) doxazosin(doxazosin 4 mg oral tablet), 4 mg= 1 tab, PO, Daily furosemide(furosemide 20 mg oral tablet), 20 mg= 1 tab, PO, qMonWedFri, 3 refills ibuprofen(Advil) ketorolac ophthalmic(ketorolac 0.4% ophthalmic solution), 1 drop, both eyes, qid, PRN metoprolol(metoprolol succinate 50 mg oral tablet, extended release), 25 mg= 0.5 tab, PO, bid sacubitril-valsartan(Entresto 49 mg-51 mg oral tablet), 1 tab, PO, bid, 11 refills spironolactone(spironolactone 25 mg oral tablet), 12.5 mg= 0.5 tab, PO, Daily, 3 refills tamsulosin(tamsulosin 0.4 mg oral capsule), 0.4 mg= 1 cap, PO, Daily Allergies Bee stingsunk Social History Smoking Status Former Smoker, quit > 1 yr Electronic Signature on File CC: Radha Cortez MD [facility] [id number] * Electronically Reviewed/Signed by: EBENEZER Ceron Author Signature Dt/Tm:01/13/2024 04:58 PM [facility] Patient Care team information Care Team Personnel Name: MD Diego, Radha Berumen Position: Referring Member Role: Primary Care Provider Address: [address] [place] [id number]
--- OUTSIDE RECORDS SUMMARY | 2024-04-06 07:35 | External Medical Summary | Continuity of Care Document ---
Author Name Unknown Organization [facility] [address] Address [address] [place], [place] [id number] Care Team Providers Care Bulk Plant Manager Name Role Phone Nayely Cortez Primary Care Physician [phone] [id number] Date[facility]s): 03/08/24 - 03/08/24 [facility] [address] [facility] [address], [facility] 1 [place], [place] [phone] Encounter Diagnosis Other rn long term care (current) drug therapy(Final) - Unspecified atrial fibrillation(Final) - Unspecified systolic (congestive) heart failure(Final) - Discharge Disposition: Home or Self Care Attending Physician: EBENEZER Shankar Sarah A Referring Physician: EBENEZER Shankar Sarah A Allergies, Adverse Reactions, Alerts Substance Criticality Severity Reaction Reaction Severity Status digoxin blurred vision Activ e Bee stings unk Active Medications acetaminophen Start: 12/23/23 12:58:00 PM EDT Start Date: 12/23/23 Status: Ordered amiodarone 200 mg oral tablet Start: 12/23/23 1:57:00 PM EDT, 1 tab, PO, bid, Disp# 60 tab, Refills: 3, Pharmacy: [id number] Start Date: 12/23/23 Status: Ordered Bumex 1 mg oral tablet Start: 02/02/24 3:26:00 PM EDT, 1 tab, PO, Daily, Disp# 90 tab, Refills: 3, Pharmacy: [facility] Start Date: 02/02/24 Status: Ordered doxazosin 4 [...] bid, Disp# 60 tab, Refills: 11, Pharmacy: [id number] Start Date: 12/23/23 Status: Ordered ketorolac 0.4% ophthalmic solution Start: 12/23/23 9:40:00 AM EDT, 1 drop, both eyes, qid, PRN: as needed for pain Start Date: 12/23/23 Status: Ordered metoprolol succinate 50 mg oral tablet, extended release Start: 12/23/23 9:41:00 AM EDT, 1 tab, PO, bid Start Date: 12/23/23 Status: Ordered spironolactone 25 mg oral tablet Start: 01/13/24 4:17:00 PM EDT, 1 tab, PO, Daily, Disp# 90 tab, Refills: 3, Pharmacy: [id number] Start Date: 01/13/24 Stop Date: 01/07/25 Status: Ordered tamsulosin 0.4 mg oral capsule Start: 12/23/23 9:42:00 AM EDT, 1 cap, PO, Daily, alternate with doxasozin Start Date: 12/23/23 Status: Ordered Vitamin D3 Start: 12/23/23 9:42:00 AM EDT Start Date: 12/23/23 Status: Ordered Problem List Condition Confirmation Course Effective Dates Status H ealth Status Informant Atrial fibrillation Confirmed Active NICM (nonischemic cardiomyopathy) Confirmed Active Chronic systolic CHF (congestive heart failure) Confirmed Active Dilated cardiomyopathy Confirmed Active Dyspnea Confirmed Active Hypertension Confirmed Active SHEILA (obstructive sleep apnea) Confirmed Active Results Laboratory List Name Date Amiodarone Level, w Metabolites (AMIODAR ONE) 03/08/24 Request to FAX Report (First Location) ( ACC NO TO BE FAXED) 03/08/24 Most recent to oldest [Reference Range]: 1 DEAmiodarone. REQUEST CREDITED 1 (03/08/24 10:05 AM) Phone No [phone] (03/08/24 10:05 AM) Amiodarone REQUEST CREDITED 3 (11/21/24 10:05 AM) 1Result Comment: REORDERED BY LAB SEE REFERENCE REPORT 2Result Comment: Testing Performed By: [facility] [address], [facility] [address], [place] [address] 3Result Comment: REORDERED BY LAB SEE REFERENCE REPORT Social History Social History Type Response Smoking Status Former Smoker, quit > 1 yr Sex Male Sex Representation Male (finding) Patient Care team information Care Team Personnel Name: MD Diego, Nayely Berumen Position: Referring Member Role: Primary Care Provider Address: [address] [address]
--- OUTSIDE RECORDS SUMMARY | 2024-04-06 07:35 | External Medical Summary | Continuity of Care Document ---
Author Name Unknown Organization [facility] [address] Address [address] [place], [place] [id number] Care Team Providers Care Chief Deputy Coroner Name Role Phone Radha Cortez Primary Care Physician [phone] [id number] [address] [facility] [address], [facility] [address] [place], [place] [phone] Encounter Diagnosis Iron deficiency anemia, unspecified(Final) - Hypomagnesemia(Final) - Essential (primary) hypertension(Final) - Heart failure, unspecified(Final) - Discharge Disposition: Home or Self Care Attending Physician: MD Cortez H Jeanne Referring Physician: MD Cortez H Jeanne Allergies, Adverse Reactions, Alerts Substance Criticality Severity Reaction Reaction Severity Status Bee stings unk Active Medications acetaminophen Start: 12/23/23 12:58:00 PM EDT Start Date: 12/23/23 Status: Ordered Advil Start: 12/23/23 12:58:00 PM EDT Start Date: 12/23/23 Status: Ordered amiodarone 200 mg oral tablet Start: 12/23/23 1:57:00 PM EDT, 1 tab, PO, bid, Disp# 60 tab, Refills: 3, Pharmacy: [facility] Start Date: 12/23/23 Status: Ordered doxazosin [...] bid, Disp# 60 tab, Refills: 11, Pharmacy: [id number] Start Date: 12/23/23 Status: Ordered furosemide 20 [...] Daily, Disp# 45 tab, Refills: 3, Pharmacy: [facility] Start Date: 01/13/24 Stop Date: [...] Daily, Disp# 90 tab, Refills: 4, Pharmacy: [facility] Start Date: 01/02/24 Status: Ordered Problem List Condition Confirmation Course Effective Dates Status H ealth Status Informant Atrial fibrillation Confirmed Active NICM (nonischemic cardiomyopathy) Confirmed Active Chronic systolic CHF (congestive heart failure) Confirmed Active Dilated cardiomyopathy Confirmed Active Dyspnea Confirmed Active Hypertension Confirmed Active Results Laboratory List Name Date Comprehensive Metabolic Panel (COMP META B PANEL) 01/19/24 Magnesium Level (MAGNESIUM) 01/19/24 Request to FAX Report (First Location) ( ACC NO TO BE FAXED) 01/19/24 Most recent to oldest [Reference Range]: 1 eGFR CKD-EPI [>60 mL/min/1.73 m2] 40 mL/ min/1.73 m2 1 *LOW* (01/19/24 3:18 PM) Estimated CrCl 33.65 mL/min (01/19/24 3:52 PM) Phone No [phone] (01/19/24 3:18 PM) Faxed on: Not a Fax Number (01/19/24 3:18 PM) Anion Gap [5-14 mmol/L] 7 mmol/L (01/19/24 3:18 PM) Alb [3.5-5.0 g/dL] 3.6 g/dL (01/19/24 3:18 PM) Alk Phos [38-126 unit/L] 85 unit/L (01/19/24 3:18 PM) ALT [<50 unit/L] 36 unit/L (01/19/24 3:18 PM) AST [15-46 unit/L] 32 unit/L (01/19/24 3:18 PM) BUN [7-20 mg/dL] 24 mg/dL *HI* (01/19/24 3:18 PM) Ca [8.4-10.2 mg/dL] 8.8 mg/dL (01/19/24 3:18 PM) Cl- [96-107 mmol/L] 105 mmol/L (01/19/24 3:18 PM) HCO3 [22-30 mmol/L] 25 mmol/L (01/19/24 3:18 PM) Cret [0.70-1.30 mg/dL] 1.70 mg/dL *HI* (01/19/24 3:18 PM) Glu [74-106 mg/dL] 112 mg/dL *HI* (01/19/24 3:18 PM) K [3.5-5.1 mmol/L] 3.7 mmol/L (01/19/24 3:18 PM) Mg [1.6-2.3 mg/dL] 2.0 mg/dL 3 (01/19/24 3:18 PM) Na [137-145 mmol/L] 137 mmol/L (01/19/24 3:18 PM) T Bili [0.2-1.3 mg/dL] 1.4 mg/dL *HI* (01/19/24 3:18 PM) Prot [6.3-8.2 g/dL] 6.5 g/dL (01/19/24 3:18 PM) 1Result Comment: Testing Performed By: Dept of Pathology [facility] [address], [address] [place], [place] [address], [place] [address] 2Result Comment: Testing Performed By: Dept of Pathology [facility] [address], [address], [place] [address] 3Result Comment: Testing Performed By: Dept of Pathology [facility] [address], [address], [place] [address] Social History Social History Type Response Smoking Status Former Smoker, quit > 1 yr Sex Male Sex Representation Male (finding) Patient Care team information Care Team Personnel Name: MD Cortez H Jeanne Position: Referring Member Role: Primary Care Provider Address: [address] [place] [id number]
--- OUTSIDE RECORDS SUMMARY | 2024-04-06 07:35 | External Medical Summary | Continuity of Care Document ---
Author Name Unknown Organization [facility] [address] JEREM[address] 1 Address [address] [place], [place] [id number] Care Team Providers Care Campaign Management Specialist Name Role Phone Radah Cortez Primary Care Physician [phone] [facility] [id number] Date(s): 01/19/24 - 01/19/24 [facility] [address] [facility] [address], [facility] 1 [place], [place] [phone] Encounter Diagnosis Iron deficiency(Final) - Other specified abnormalities of plasma proteins(Final) - Discharge Disposition: Home or Self Care [...] bid, Disp# 60 tab, Refills: 3, Pharmacy: [facility] 16[facility] Start Date: 12/23/23 Status: Ordered [...] bid, Disp# 60 tab, Refills: 11, [id number] Start Date: 12/23/23 Status: Ordered furosemide 20 [...] Daily, Disp# 45 tab, Refills: 3, [facility] Start Date: 01/13/24 Stop Date: 01/07/25 [...] Daily, Disp# 90 tab, Refills: 4, [facility] Start Date: 01/02/24 Status: Ordered Problem List Condition Confirmation Course Effective Dates Status H ealth Status Informant Atrial fibrillation Confirmed Active NICM (nonischemic cardiomyopathy) Confirmed Active Chronic systolic CHF (congestive heart failure) Confirmed Active Dilated cardiomyopathy Confirmed Active Dyspnea Confirmed Active Hypertension Confirmed Active Results Laboratory List Name Date Complete Blood Count w Differential (CBC ,DIFFH) 01/19/24 Request to FAX Report (First Location) ( ACC NO TO BE FAXED) 01/19/24 Most recent to oldest [Reference Range]: 1 Phone No [phone] (01/19/24 3:23 PM) MPV [9.0-12.2 fL] 13.7 fL *HI* (01/19/24 3:23 PM) Immature Gran% 0.9 % (01/19/24 3:23 PM) Neut% 67.8 % (01/19/24 3:23 PM) Lymph% 21.1 % (01/19/24 3:23 PM) Lander% 7.7 % (01/19/24 3:23 PM) Baso% 0.9 % (01/19/24 3:23 PM) Eos% 1.6 % (01/19/24 3:23 PM) Immat Gran, Abs [0-0.4 K/uL] 0.05 K/uL (01/19/24 3:23 PM) Neut, Abs [2.0-7.7 K/uL] 3.86 K/uL (01/19/24 3:23 PM) Lymph, Abs [1.0-3.4 K/uL] 1.20 K/uL (01/19/24 3:23 PM) Lander, Abs [0-1.0 K/uL] 0.44 K/uL (01/19/24 3:23 PM) Baso, Abs [0-0.1 K/uL] 0.05 K/uL (01/19/24 3:23 PM) Eos, Abs [0-0.5 K/uL] 0.09 K/uL (01/19/24 3:23 PM) Type of Diff: AUTO *Unknown* (01/19/24 3:23 PM) RDW [11.5-14.2 %] 16.0 % *HI* (01/19/24 3:23 PM) Hct [39-48 %] 40.7 % (01/19/24 3:23 PM) Hgb [13.0-17.0 g/dL] 13.2 g/dL (01/19/24 3:23 PM) MCH [28-33 pg] 28.0 pg (01/19/24 3:23 PM) MCHC [32-36 g/dL] 32.4 g/dL (01/19/24 3:23 PM) MCV [81-96 fL] 86.4 fL (01/19/24 3:23 PM) Plts [150-350 K/uL] 154 K/uL (01/19/24 3:23 PM) RBC [4.40-5.60 M/uL] 4.71 M/uL (01/19/24 3:23 PM) WBC [4.0-10.4 K/uL] 5.69 K/uL (01/19/24 3:23 PM) 1Result Comment: Testing Performed By: Dept of Pathology [facility] [address], [address], [place] [address] Social History Social History Type Response Smoking Status Former Smoker, quit > 1 yr Sex Male Sex Representation Male (finding) Patient Care team information Care Team Personnel Name: MD Cortez H Jeanne Position: Referring Member Role: Primary Care Provider Address: [address] [place] [id number]
--- OUTSIDE RECORDS SUMMARY | 2024-04-06 07:35 | External Medical Summary | Continuity of Care Document ---
Author Name Unknown Organization [facility] [address] Address [address] [place], [place] [id number] Care Team Providers Care Engineering Psychologist Name Role Phone Nayely Cortez Primary Care Physician [phone] [id number] Date(s): 03/08/24 - 03/08/24 [facility] [address] JEREM[address]AS 1 [facility] [address], [facility] 1 [place], [place] [phone] Encounter Diagnosis Abnormal results of liver function studies(Final) - Chronic kidney disease, unspecified(Final) - Discharge Disposition: Home or Self Care Attending Physician: MD Diego, Nayely Berumen Referring Physician: MD Cortez Hallie Jeanne Allergies, Adverse Reactions, Alerts Substance Criticality Severity Reaction Reaction Severity Status digoxin blurred vision Activ e Bee stings unk Active Medications acetaminophen Start: 12/23/23 12:58:00 PM EDT Start Date: 12/23/23 Status: Ordered amiodarone 200 mg oral tablet Start: 12/23/23 1:57:00 PM EDT, 1 tab, PO, bid, Disp# 60 tab, Refills: 3, [facility] Start Date: 12/23/23 Status: Ordered Bumex 1 mg oral tablet Start: 02/02/24 3:26:00 PM EDT, 1 tab, PO, Daily, Disp# 90 tab, Refills: 3, Pharmacy: [facility] 1639 Start Date: 02/02/24 Status: Ordered doxazosin [...] bid, Disp# 60 tab, Refills: 11, Pharmacy: [facility] [id number] Start Date: 12/23/23 Status: Ordered ketorolac 0.4% [...] Daily, Disp# 90 tab, Refills: 3, Pharmacy: [facility] Start Date: 01/13/24 Stop Date: [...] Laboratory List Name Date Complete Blood Count (CBC) 03/08/24 Comprehensive Metabolic Panel (COMP META B PANEL) 03/08/24 Request to FAX Report (First Location) ( ACC NO TO BE FAXED) 03/08/24 Most recent to oldest [Reference Range]: 1 eGFR CKD-EPI [>60 mL/min/1.73 m2] 32 mL/ min/1.73 m2 1 *LOW* (03/08/24 10:08 AM) Estimated CrCl 28.65 mL/min (03/08/24 11:12 AM) Phone No [phone] (03/08/24 10:08 AM) Faxed on: 03/09/24 09:27 (03/08/24 10:08 AM) MPV [9.0-12.2 fL] 13.0 fL *HI* (03/08/24 10:08 AM) RDW [11.5-14.2 %] 18.4 % *HI* (03/08/24 10:08 AM) Anion Gap [5-14 mmol/L] 12 mmol/L (03/08/24 10:08 AM) Alb [3.5-5.0 g/dL] 4.0 g/dL (03/08/24 10:08 AM) Alk Phos [38-126 unit/L] 125 unit/L (03/08/24 10:08 AM) ALT [<50 unit/L] 44 unit/L (03/08/24 10:08 AM) AST [15-46 unit/L] 48 unit/L *HI* (03/08/24 10:08 AM) BUN [7-20 mg/dL] 37 mg/dL *HI* (03/08/24 10:08 AM) Ca [8.4-10.2 mg/dL] 8.9 mg/dL (03/08/24 10:08 AM) Cl- [96-107 mmol/L] 100 mmol/L (03/08/24 10:08 AM) HCO3 [22-30 mmol/L] 24 mmol/L (03/08/24 10:08 AM) Cret [0.70-1.30 mg/dL] 2.01 mg/dL *HI* (03/08/24 10:08 AM) Glu [74-106 mg/dL] 109 mg/dL *HI* (03/08/24 10:08 AM) Hct [39-48 %] 48.0 % (03/08/24 10:08 AM) Hgb [13.0-17.0 g/dL] 15.8 g/dL (03/08/24 10:08 AM) K [3.5-5.1 mmol/L] 4.5 mmol/L (03/08/24 10:08 AM) MCH [28-33 pg] 28.8 pg (03/08/24 10:08 AM) MCHC [32-36 g/dL] 32.9 g/dL (03/08/24 10:08 AM) MCV [81-96 fL] 87.4 fL (03/08/24 10:08 AM) Na [137-145 mmol/L] 136 mmol/L *LOW* (03/08/24 10:08 AM) Plts [150-350 K/uL] 172 K/uL (03/08/24 10:08 AM) RBC [4.40-5.60 M/uL] 5.49 M/uL (03/08/24 10:08 AM) T Bili [0.2-1.3 mg/dL] 1.3 mg/dL (03/08/24 10:08 AM) Prot [6.3-8.2 g/dL] 6.8 g/dL (03/08/24 10:08 AM) WBC [4.0-10.4 K/uL] 4.65 K/uL 3 (03/08/24 10:08 AM) 1Result Comment: Testing Performed By: Dept of Pathology [facility] [address], [address] [place] [address] 2Result Comment: Testing Performed By: Dept of Pathology [facility] [address], [address] [place] [address] 3Result Comment: ADJUSTED FOR NUCLEATED RBC'S Social History Social History Type Response Smoking Status Former Smoker, quit > 1 yr Sex Male Sex Representation Male (finding) Patient Care team information Care Team Personnel Name: MD Diego, Nayely Berumen Position: Referring Member Role: Primary Care Provider Address: [address] [address]
--- OUTSIDE RECORDS SUMMARY | 2024-04-06 07:35 | External Medical Summary | Continuity of Care Document ---
Author Name Unknown Organization [address] Address [address] [place], [place] [id number] Care Team Providers Care Ornamental Machine Operator Name Role Phone Radha Cortez Primary Care Physician [phone] [facility] [id number] Date(s): 12/23/23 - 12/23/23 [facility] [address], [address] [place] [address] [phone] Encounter Diagnosis Atrial fibrillation(Discharge Diagnosis) - 12/23/23 Dilated cardiomyopathy(Discharge Diagnosis) - 12/23/23 Hypertension(Discharge Diagnosis) - 12/23/23 NICM (nonischemic cardiomyopathy)(Discharge Diagnosis) - 12/23/23 Chronic systolic CHF (congestive heart failure)(Discharge Diagnosis) - 12/23/23 Afib(Discharge Diagnosis) - 12/23/23 Unspecified atrial fibrillation(Final) - Other cardiomyopathies(Final) - Dilated cardiomyopathy(Final) - Essential (primary) hypertension(Final) - Chronic systolic (congestive) heart failure(Final) - Discharge Disposition: Home or Self Care Attending Physician: DO Carter Jason D Referring Physician: MD Cortez H Jeanne Allergies, [...] bid, Disp# 60 tab, Refills: 3, [facility]acy: [facility] 1640 Start Date: 12/23/23 Status: Ordered doxazosin [...] bid, Disp# 60 tab, Refills: 11, Pharmacy: [facility] [id number] Start Date: 12/23/23 Status: Ordered furosemide 40 mg oral tablet Start: 12/23/23 9:41:00 AM EDT, 0.5 tab, PO, Daily Start Date: 12/23/23 Status: Ordered Jardiance 10 mg oral tablet Start: 12/23/23 9:41:00 AM EDT, 1 tab, PO, Daily, Disp# 30 tab, 3x weekly in am Start Date: 12/23/23 Status: Ordered ketorolac 0.4% ophthalmic solution Start: 12/23/23 9:40:00 AM EDT, 1 drop, both eyes, qid, PRN: as needed for pain Start Date: 12/23/23 Status: Ordered metoprolol succinate 50 mg oral tablet, extended release Start: 12/23/23 9:41:00 AM EDT, 0.5 tab, PO, bid Start Date: 12/23/23 Status: Ordered tamsulosin 0.4 mg oral capsule Start: 12/23/23 9:42:00 AM EDT, 1 cap, PO, Daily, alternate with doxasozin Start Date: 12/23/23 Status: Ordered Vitamin D3 Start: 12/23/23 9:42:00 AM EDT Start Date: 12/23/23 Status: Ordered Mental Status 12/23/23 Barriers to Learning one year None evide nt Mandatory Health Literacy Documentation Yes Health Literacy Communication Barriers N ever Primary Language Namibian Problem List Condition Confirmation Course Effective Dates Status H ealth Status Informant Atrial fibrillation Confirmed Active NICM (nonischemic cardiomyopathy) Confirmed Active Chronic systolic CHF (congestive heart failure) Confirmed Active Dilated cardiomyopathy Confirmed Active Dyspnea Confirmed Active Hypertension Confirmed Active Diagnosis Diagnosis Type Effective Dates Health Status Clinical Service Informant Dilated cardiomyopathy Discharge Diagnosis 12/23/23 Hypertension Discharge Diagnosis 12/23/23 Atrial fibrillation Discharge Diagnosis 12/23/23 NICM (nonischemic cardiomyopathy) Discharge Diagnosis 12/23/23 Chronic systolic CHF (congestive heart failure) Discharge Diagnosis 12/23/23 Afib Discharge Diagnosis 12/23/23 Non-Specified Results Laboratory List Name Date Comprehensive Metabolic Panel (COMP META B PANEL) 12/23/23 Ferritin (FERRITIN) 12/23/23 Iron Profile (IRON PROFILE) 12/23/23 M-Juno Quantitation, Random (M-SPIKE,QT ,RAN,UR PKG) 12/23/23 Protein Electrophoresis, Serum (EPG, SER UM PROTEIN) 12/23/23 Thyroid Stimulating Hormone (TSH) 12/23/23 Most recent to oldest [Reference Range]: 1 Prot, Serum [6.1-7.9 g/dL] 6.5 g/dL (12/23/23 2:18 PM) eGFR CKD-EPI [>60 mL/min/1.73 m2] 57 mL/ min/1.73 m2 1 *LOW* (12/23/23 2:18 PM) Estimated CrCl 45.69 mL/min (12/23/23 2:56 PM) Prot/Cret (u) 0.35 (12/23/23 2:18 PM) Protein (u) ran [<26 mg/dL] 25 mg/dL (12/23/23 2:18 PM) Anion Gap [5-14 mmol/L] 7 mmol/L (12/23/23 2:18 PM) Alb [3.5-5.0 g/dL] 4.1 g/dL (12/23/23 2:18 PM) Alk Phos [38-126 unit/L] 76 unit/L (12/23/23 2:18 PM) ALT [<50 unit/L] 37 unit/L (12/23/23 2:18 PM) AST [15-46 unit/L] 47 unit/L *HI* (12/23/23 2:18 PM) BUN [7-20 mg/dL] 19 mg/dL (12/23/23 2:18 PM) Ca [8.4-10.2 mg/dL] 9.3 mg/dL (12/23/23 2:18 PM) Cl- [96-107 mmol/L] 104 mmol/L (12/23/23 2:18 PM) HCO3 [22-30 mmol/L] 28 mmol/L (12/23/23 2:18 PM) Cret [0.70-1.30 mg/dL] 1.26 mg/dL (12/23/23 2:18 PM) Iron [50-158 ug/dL] 40 ug/dL *LOW* (12/23/23 2:18 PM) Ferritin [17.9-464.0 ng/mL] 337.5 ng/mL 2 (12/23/23 2:18 PM) Glu [74-106 mg/dL] 102 mg/dL (12/23/23 2:18 PM) K [3.5-5.1 mmol/L] 4.1 mmol/L (12/23/23 2:18 PM) Na [137-145 mmol/L] 139 mmol/L (12/23/23 2:18 PM) Fe Sat [14-50 %] 19 % (12/23/23 2:18 PM) T Bili [0.2-1.3 mg/dL] 1.2 mg/dL (12/23/23 2:18 PM) Total IBC [250-400 ug/dL] 207 ug/dL *LOW* (12/23/23 2:18 PM) Prot [6.3-8.2 g/dL] 6.9 g/dL (12/23/23 2:18 PM) Transferrin [200-360 mg/dL] 175 mg/dL *LOW* (12/23/23 2:18 PM) TSH [0.47-4.68 uIU/mL] 1.85 uIU/mL 3 (12/23/23 2:18 PM) Creat (u) 70.49 mg/dL 4 (12/23/23 2:18 PM) 1Result Comment: Testing Performed By: Dept of Pathology [facility] [address], [address] [facility] [place] [place] [address] 2Result Comment: Testing Performed By: Dept of Pathology [facility] [address], [address] [place] [address] 3Result Comment: Testing Performed By: Dept of Pathology [facility] [address], [address] [facility] [place] [place] [address] 4Result Comment: Reference Range for Random Urine Not Established. Vital Signs Most recent to oldest [Reference Range]: 1 Height 166.5 cm (12/23/23 1:13 PM) Patient Weight 84.5 kg (12/23/23 1:13 PM) Body Mass Index 30.48 kg/m2 (12/23/23 1:13 PM) Heart Rate 84 bpm (12/23/23 1:13 PM) Blood Pressure 156/98mmHg (12/23/23 1:13 PM) BP Location # 1 Right Arm (12/23/23 1:13 PM) Social History Social History Type Response Smoking Status Former Smoker, quit > 1 yr Sex Male Sex Representation Male (finding) Radiology * Contributor_system, MUSE01: VERIFY, PERFORM Event Display: EKG Authored Date: Please click on link to see image. 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 We reviewed his history and we started back in 2021 through March 2023 and all into the present. His ejection fraction of 2021 was mildly reduced in the range of 45 to 50%. His notes she last listen to his heart rhythm in March and he was in sinus rhythm accordingto her as his rate was regular. They note in 2022 he had a colonoscopy and at that time was in sinus rhythm. In July of this year he had worsening heart failure symptoms. His atrial fibrillation was found to be new he was also found to have severe LV dysfunction. He actually needed admission for diuresis. He was admitted to [facility] in August and underwent cardiac catheterization that did not reveal significant coronary artery disease. He will underwent an attempted CONY cardioversion but stayed in sinus rhythm only briefly and then reverted back to his atrial arrhythmia. He notes with medication his heart failure symptoms are improving. He did not feel well on digoxin. Additionally with Jardiance he is noting some urinary discomfort and mild erythema. He denies any chest pain or chest pressure. Shortness of breath has improved. He can climb asingle flight of stairs (10 steps) without having to stop. He denies any orthopnea. He has somemild pedal edema. When he takes his diuretics he does urinate a significant amount. He is unaware of any palpitations or fluttering either now or previously. Denies any presyncope or syncope.His appetite has remained stable he denies any early satiety. He has no bleeding or bruising on low-dose Eliquis. Review of Systems PMHX: 1. Nonischemic cardiomyopathy with severe left ventricular dysfunction and an EF in the range of 20% 2. Cardiac catheterization at [facility] with minimal epicardial coronary artery disease; wedge [...] 7. 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 [employer]; he notes no more than 1 drink a day previous to July Physical Exam Vitals & Measurements HR:84(Monitored) BP:156/98 SpO2:98% HT:166.5cm WT:84.500kg(Dosing) WT:84.5kg BMI:30.48 BMI:30.48 kg/m2 Patient is awake alert and oriented x3and in no acute distress HEENT:1+ carotid upstrokes, no evidence of carotid bruits LUNGS:Clear to auscultation bilaterally no rales rhonchi or wheezing HEART:Iregular rate and rhythmno appreciable murmurs rubs or gallops ABDOMEN:Soft nontender nondistended positive bowel sounds EXTREMITIES:No evidence of clubbing cyanosis or edema PSYCHIATRIC:Patient's affect appeared appropriate EKG EKG today atrial flutter (likely left-sided) with variable AV conduction PVC, low voltage QRS, nonspecific T wave changes, borderline QTc Assessment/Plan 1.Atrial fibrillation 2.NICM (nonischemic cardiomyopathy) 3.Dilated cardiomyopathy 4.Hypertension 5.Chronic systolic CHF (congestive heart failure) Reviewed all of his outside records and we had a long conversation with regards to potential etiologies for his nonischemic cardiomyopathy. We discussed he needs a serum protein electrophoresis, urine protein electrophoresis, ferritin, iron profile and a TSH to rule out secondary causes that might lead to a cardiomyopathy. Overall I think this is low yield The question is whether his atrial arrhythmia and the loss of his atrial kick has led to worsening LV dysfunction. It is interesting he did have some LV dysfunction in 2021 which raises the question as to whether this is just hypertensive heart disease. I discussed with I would put him on amiodarone to slow his heart rate down. His heart rate is toofast on beta-blockers and he did not tolerate digoxin. The hope would be that after we load him with amiodarone and maximize his guideline directed medical therapy that we could try to cardiovert him and get him back in sinus rhythm and see if his LV function improved. If it did he be a candidate potentially for an A-fib ablation. If there is no improvement in his LV function even in sinus rhythm then we know at that point we just medically treat his heart failure. Therefore we will: 1. Add amiodarone 2 mg twice daily 2. He has been on low-dose Eliquis due to a combination of his age and a creatinine of about 1.45. 3. Will double his Entresto to the mid dose 4. Will have a BMP in 10 days and return to see Milagros, our nurse practitioner, to try to uptitrate his Entresto further 5. If his renal function and potassium allow we could try adding spironolactone at a low dose (12and half milligrams daily) and reducing his loop diuretic given loop diuretics do not have any mortality benefit. 6. He will need an EKG when he returns in 3 weeks to assess his QTc on amiodarone 7. I am concerned about his use of Jardiance and the risk of infection. He is only taking it 2 days a week. I discussed with him the risk of infection is very real and if there is that concern especially with some urinary incontinence we should discontinue the drug. Once we determine if his LV function improves or not at some point a defibrillator is in the conversation. We did discuss with a narrow QRS complex he would not qualify for anything other than a single-chamber defibrillator. All her questions were answered in detail. Problem List/Past Medical History Ongoing Atrial fibrillation Chronic systolic CHF (congestive heart failure) Dilated cardiomyopathy Dyspnea Hypertension NICM (nonischemic cardiomyopathy) Medications Home acetaminophen amiodarone(amiodarone 200 mg oral tablet), 200 mg= 1 tab, PO, bid, 3 refills apixaban(Eliquis 2.5 mg oral tablet), 2.5 mg= 1 tab, PO, bid cholecalciferol(Vitamin D3) doxazosin(doxazosin 4 mg oral tablet), 4 mg= 1 tab, PO, Daily empagliflozin(Jardiance 10 mg oral tablet), 10 mg= 1 tab, PO, Daily furosemide(furosemide 40 mg oral tablet), 20 mg= 0.5 tab, PO, Daily ibuprofen(Advil) ketorolac ophthalmic(ketorolac 0.4% ophthalmic solution), 1 drop, both eyes, qid, PRN metoprolol(metoprolol succinate 50 mg oral tablet, extended release), 25 mg= 0.5 tab, PO, bid sacubitril-valsartan(Entresto 49 mg-51 mg oral tablet), 1 tab, PO, bid, 11 refills tamsulosin(tamsulosin 0.4 mg oral capsule), 0.4 mg= 1 cap, PO, Daily Allergies Bee stingsunk Social History Smoking Status Former Smoker, quit > 1 yr Electronic Signature on File CC: Radha Cortez MD [address] [place] [phone] * Electronically Reviewed/Signed by: Romulo Carter DO Author Signature Dt/Tm:12/23/2023 02:55 PM Knitted Garment Finisherslot floorperson [facility] [place], [address] [place] [address] JDF Patient Care team information Care Team Personnel Name: MD Cortez H Jeanne Position: Referring Member Role: Primary Care Provider Address: [address] [place] [id number] [place]
--- OUTSIDE RECORDS SUMMARY | 2024-04-06 07:35 | External Medical Summary | Continuity of Care Document ---
Author Name Unknown Organization [facility] [address] [facility] Address [address] [place], [place] [id number] Care Team Providers Care Block Making Machine Operator Name Role Phone Nayely Cortez Primary Care Physician [phone] [id number] Date(s): 03/23/24 - 03/23/24 [facility] [address], [address] [place] [address] [phone] Discharge Disposition: Home or Self Care Attending [...] bid, Disp# 60 tab, Refills: 3, Pharmacy: [facility] 1640 Start Date: 12/23/23 Status: Ordered Bumex 1 mg oral tablet Start: 02/02/24 3:26:00 PM EDT, 1 tab, PO, Daily, Disp# 90 tab, Refills: 3, Pharmacy: [facility] 16[facility] Start Date: 02/02/24 Status: Ordered [...] bid, Disp# 60 tab, Refills: 11, Pharmacy: [facility] [id number] Start Date: 12/23/23 Status: Ordered ketorolac 0.4% [...] Daily, Disp# 90 tab, Refills: 3, Pharmacy: [facility] 16[facility] Start Date: 01/13/24 Stop Date: 01/07/25 Status: Ordered tamsulosin 0.4 mg oral capsule Start: 12/23/23 9:42:00 AM EDT, 1 cap, PO, Daily, alternate with doxasozin Start Date: 12/23/23 Status: Ordered Vitamin D3 Start: 12/23/23 9:42:00 AM EDT Start Date: 12/23/23 Status: Ordered Mental Status 03/23/24 Barriers to Learning one year None evide nt Mandatory Health Literacy Documentation Yes Health Literacy Communication Barriers N ever Primary Language Andorran Problem List Condition Confirmation Course Effective Dates Status H ealth Status Informant Atrial fibrillation Confirmed Active NICM (nonischemic cardiomyopathy) Confirmed Active Chronic systolic CHF (congestive heart failure) Confirmed Active Dilated cardiomyopathy Confirmed Active Dyspnea Confirmed Active Hypertension Confirmed Active SHEILA (obstructive sleep apnea) Confirmed Active Social History Social History Type Response Smoking Status Never smoked cigaret aakash Sex Male Sex Representation Male (finding) Patient Care team information Care Team Personnel Name: MD Cortez Hallie Jeanne Position: Referring Member Role: Primary Care Provider Address: [address] [address]
--- OUTSIDE RECORDS SUMMARY | 2024-04-06 07:35 | External Medical Summary | Continuity of Care Document ---
Author Name Unknown Organization [facility] [address] Address [address] [place], [place] [id number] Care Team Providers Care Plastering Contractor Name Role Phone Radha Cortez Primary Care Physician [phone] Encounter [facility] [id number] Date(s): 01/12/24 - 01/12/24 [facility] [address] [facility] [address] [facility] [address] [place], [place] [phone] Encounter Diagnosis Unspecified atrial fibrillation(Final) - Other cardiomyopathies(Final) - Dilated cardiomyopathy(Final) - Essential (primary) hypertension(Final) - Chronic systolic (congestive) heart failure(Final) - Discharge Disposition: Home or Self Care Attending Physician: DO Carter Jason D Referring Physician: DO Carter Jason D Allergies, Adverse Reactions, Alerts Substance Criticality Severity Reaction Reaction Severity Status Bee stings unk Active Medications acetaminophen Start: 12/23/23 12:58:00 PM EDT Start Date: 12/23/23 Status: Ordered Advil Start: 12/23/23 12:58:00 PM EDT Start Date: 12/23/23 Status: Ordered amiodarone 200 mg oral tablet Start: 12/23/23 1:57:00 PM EDT, 1 tab, PO, bid, Disp# 60 tab, Refills: 3, Pharmacy: [facility] [id number] Start Date: 12/23/23 Status: Ordered doxazosin [...] bid, Disp# 60 tab, Refills: 11, Pharmacy: [id number] Start Date: 12/23/23 Status: Ordered furosemide 20 [...] Daily, Disp# 45 tab, Refills: 3, Pharmacy: [id number] Start Date: 01/13/24 Stop [...] Daily, Disp# 90 tab, Refills: 4, Pharmacy: [id number] Start Date: 01/02/24 Status: Ordered Problem List Condition Confirmation Course Effective Dates Status H ealth Status Informant Atrial fibrillation Confirmed Active NICM (nonischemic cardiomyopathy) Confirmed Active Chronic systolic CHF (congestive heart failure) Confirmed Active Dilated cardiomyopathy Confirmed Active Dyspnea Confirmed Active Hypertension Confirmed Active Results Laboratory List Name Date Basic Metabolic Panel (BASIC METAB PANEL ) 01/12/24 Immunofixation Profile (IMMUNOFIXATION P ROF) 01/12/24 Most recent to oldest [Reference Range]: 1 eGFR CKD-EPI [>60 mL/min/1.73 m2] 47 mL/ min/1.73 m2 1 *LOW* (01/12/24 3:15 PM) Estimated CrCl 38.75 mL/min (01/12/24 3:44 PM) Anion Gap [5-14 mmol/L] 7 mmol/L (01/12/24 3:15 PM) BUN [7-20 mg/dL] 24 mg/dL *HI* (01/12/24 3:15 PM) Ca [8.4-10.2 mg/dL] 8.6 mg/dL (01/12/24 3:15 PM) Cl- [96-107 mmol/L] 106 mmol/L (01/12/24 3:15 PM) HCO3 [22-30 mmol/L] 25 mmol/L (01/12/24 3:15 PM) Cret [0.70-1.30 mg/dL] 1.46 mg/dL *HI* (01/12/24 3:15 PM) Glu [74-106 mg/dL] 92 mg/dL (01/12/24 3:15 PM) IgA [70-400 mg/dL] 178 mg/dL (01/12/24 3:15 PM) IgG [700-1600 mg/dL] 846 mg/dL (01/12/24 3:15 PM) IgM [40-230 mg/dL] 26 mg/dL *LOW* (01/12/24 3:15 PM) K [3.5-5.1 mmol/L] 3.7 mmol/L (01/12/24 3:15 PM) Na [137-145 mmol/L] 138 mmol/L (01/12/24 3:15 PM) 1Result Comment: Testing Performed By: Dept of Pathology [facility] [address], [facility] [address], [place] [address] Anatomic Pathology Reports * Report Case Number Specimen Responsible Pathologist Report Status Serum Immunofixation Report [id number] MD Roche Hiroko; Final * Event Display: CP SI 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 Ashwini Roche MD (Electronically signed by) Verified: 01/14/2024 09:16 EDT Performing Location: [facility] MD Kaley, Ashwini:VERIFY; Authored Date: [id number] Social History Social History Type Response Smoking Status Former Smoker, quit > 1 yr Sex Male Sex Representation Male (finding) Patient Care team information Care Team Personnel Name: MD Diego Jamaica Position: Referring Member Role: Primary Care Provider Address: [address] [place] [id number]
--- NOTE | 2024-04-06 07:39 | XRay Report ---
EXAM: XR chest 1V portable CLINICAL HISTORY: FOLLOW UP PORTABLE BME/KAB TECHNIQUE: An X-ray image of the chest is obtained in AP projection. COMPARISON: 04/05/2024 CT. FINDINGS: Right lung lower zone homogenous opacity likely due to large effusion with underlying lung atelectasis (unchanged). Left lung lower zone homogenous opacity likely due to mild effusion (unchanged) Cardiomegaly (unchanged). No mediastinal widening or masses. No hilar or mediastinal lymphadenopathy. The bony thorax appears intact without fractures or deformities. Soft tissues overlying the chest wall are unremarkable. IMPRESSION: Right lung lower zone homogenous opacity likely due to large effusion with underlying lung atelectasis (unchanged). Left lung lower zone homogenous opacity likely due to mild effusion (unchanged). Cardiomegaly (unchanged). Electronically signed by Stormy Serrano 04-06-2024 07:39 AM
--- NOTE | 2024-04-06 08:01 | Pulmonary Consultation ---
Date of Consultation April 06, 2024 Assessment & Plan (1) Bilateral pleural effusion: (2) Acute dyspnea: (3) CKD (chronic kidney disease): (4) Anasarca: (5) CHF exacerbation: Plan IMPRESSION: 83-year-old male with significant past medical history of A-fib, CHF, cirrhosis, and CKD who presented to the hospital in the setting of dyspnea on exertion with findings consistent with bilateral RIGHT greater than left pleural effusions. Pulmonary medicine consulted for evaluation and management. RECOMMENDATIONS: 1. Bilateral pleural effusions - Noted on CT of the chest. There appears to be moderate compressive atelectasis with fluid accumulated in the fissure as well. Likely resulting in the patient's symptoms of orthopnea, PND, and dyspnea exertion. Thankfully, the patient is not hypoxic and not requiring supplemental oxygen at this time. This is likely from the patient's heart failure. Would agree with ongoing diuresis as directed by the patient's cardiology team. That being said, I am not convinced that he will have significant diuresis able to improve his symptoms during this hospitalization. Would benefit from diagnostic and therapeutic thoracentesis at least on the RIGHT sided lung field. Certainly patient, but would guess this to be more of a transudative process which would benefit from ongoing fluid management. Of note, the patient does carry history of cirrhosis and could have concerns for pulmonary syndrome. That being said, his images are consistent with bilateral effusions which likely would point more towards failure rather than his liver is the primary culprit. Unfortunately, the patient is on Eliquis. His last dose was yesterday morning (04/05/2024). Would continue to hold Eliquis with anticipation of paracentesis to be performed 48 hours after last dose (Tuesday AM). Certainly, if the patient were to have an acute decline, could perform this on emergent basis if warranted. 2. SHEILA - Recently started on home CPAP therapy. Patient had a home study and, while I do not have access to sleep study results, would anticipate that he was started on auto titrating CPAP. He has not been tolerant of this. Recommend in-lab titration study to be performed on this patient to verify appropriate settings and hopefully help improve patient compliance. This is can be not emergently performed in the outpatient setting. 3. Dyspnea - Likely secondary to #1. 4. CHF - Continue with diuresis as directed by cardiology team. Thank you for allowing us to participate in the care of this pleasant. Pulmonary medicine will continue to follow. Supervising Physician Co-Signing Physician Notes Patient seen. Discussed with MIKE. EMR and imaging reviewed. Agree with assessment plan as noted. Will plan for thoracentesis both diagnostic and therapeutic once anticoagulation has been held for an appropriate time. Anticipate that we will be able to do it sometime this weekend. Would continue diuresis and optimization of the patient's fluid status. History of Present Illness Reason for Consultation: pl. effusion b/l, ? poss. thoracentesis Requesting Physician: Dr. Butler Attending Physician: Braulio Butler MD History of Present Illness Patient is an 83-year-old male with a significant past medical history of hypertension, A-fib anticoagulated on Eliquis, CHF, CKD, cirrhosis, and SHEILA who presented to the emergency department with complaints of worsening shortness of breath and findings on outpatient chest x-ray consistent with pleural effusions. Patient notes that he has had shortness of breath for the last several months, but has noticed a significant decline over the last few weeks. He states that he can only walk short distances without becoming severely short of breath. He states that he sleeps with his head elevated secondary to dyspnea when laying flat. He also reports that he awakens in the middle of the night on multiple occasion gasping for breath. He does report that he recently started wearing a CPAP at the guidance of his veteran appeals reviewer, but has not had great success with utilization as he is having difficulty with pressures as well as the temperature of the humidifier. The patient had previously been on Lasix in the outpatient setting and then was on Bumex most recently. Has not been on any diuretics over the last few months, however. He denies complaints of chest pain or palpitatio ns. No dizziness or lightheadedness. No hemoptysis despite an ongoing cough over the last several months. He does report that his cough is productive of frothy sputum. He reports bilateral lower extremity edema extending from his feet up to his groin. Patient reports being a lifelong non-smoker. He has not had any prior diagnosis of asthma, recurrent bronchitis, COPD, or pneumonia. Allergies Allergy/AdvReac Type Severity Reaction Status Date / Time bee venom protein (honey bee) Allergy SKIN WELTS Verified 04/05/24 18:53 Home Medications Medication Instructions Recorded Confirmed Type apixaban 2.5 mg tablet (Eliquis) 2.5 mg PO BID 04/05/24 04/05/24 History bumetanide 1 mg tablet 1 mg PO QAM 04/05/24 04/05/24 History metoprolol succinate 50 mg 50 mg PO TID 04/05/24 04/05/24 History tablet,extended release 24 hr sacubitril 49 mg-valsartan 51 mg 0.5 tab PO BID 04/05/24 04/05/24 History tablet (Entresto) Patient History Medical History (Updated 04/06/24 @ 01:26 by Mable Vila MD) CHF (congestive heart failure) HTN (hypertension) with goal to be determined Atrial fibrillation Surgical History (Updated 04/05/24 @ 19:50 by Braulio Butler MD) Status post lumbar spine operative procedure for decompression of spinal cord Social History Smoking Status: Never smoker Hx Alcohol Use: No Hx Substance Use: No Preferred Language: Filipino Communication Ability: Effective Piercer Operator Required: No Beliefs That Will Affect Care: None Current Living Situation: Spouse Current Living Situation Comment: lives at home with Other Information That Helps Us Care for You: No Feels Safe at Home: Yes Safety Concerns: Feels Safe At This Time Assistive Devices: Walker Review of Systems Review of Systems: A complete 10 point review of systems was reviewed with the patient with pertinent positives and negatives as per history of present illness. All else were negative. Physical Exam Physical Exam: VITAL SIGNS Vital signs and nursing notes were reviewed. GENERAL 83-year-old male appearing his stated age who is in no acute distress. Communicates well with provider and answers questions appropriately. SKIN Without rashes or lesions. NOSE Midline and without cyanosis. MOUTH/OROPHARYNX Without perioral cyanosis. NECK Neck with FROM. LUNGS Chest wall evaluation demonstrates normal chest wall A:P diameter. Auscultation reveals diminished breath sounds at the bases. No wheezes or rales noted. CARDIAC RRR with S1/S2. No murmur, rubs, or gallops appreciated. ABDOMEN Abdominal inspection demonstrates an obese abdomen. BS normoactive all four quadrants. No tenderness, palpable masses, or ascites noted. EXTREMITIES Nail clubbing not present. No peripheral cyanosis. Moderate pretibial edema present. +3/5 radial palpated throughout. PSYCH A&Ox3 and cooperates fully with examiner. Pt is very pleasant and interacts well with examiner. Results & Data Results & Data Vital Signs (Past 12 Hours) Vital Signs Temp Pulse Pulse Resp BP Pulse Ox O2 Del Method 04/06/24 07:30 36.4 C L 90 19 125/91 92 Room Air 04/06/24 07:00 81 04/06/24 04:00 36.3 C L 80 17 121/87 95 Room Air 04/05/24 23:37 36.2 C L 68 16 100/72 95 Room Air 04/05/24 22:07 Room Air 04/05/24 22:07 36.4 C L 120 H 20 107/74 92 Room Air 04/05/24 21:36 85 18 129/86 94 Room Air 04/05/24 20:46 84 17 123/101 H 95 Room Air PG Care Time/CCT Total # of Minutes Spent Total Time Spent with Patient: Total time spent is greater than 50% in coordination of care (as documented) at patient's floor/unit and/or counseling patient: Coding Level of Care Code 80979 INT INP/OBS CARE 2/55MIN Diagnoses Bilateral pleural effusion J90 Acute dyspnea R06.00 CKD (chronic kidney disease) N18.9 Anasarca R60.1 CHF exacerbation I50.9
--- NOTE | 2024-04-06 08:47 | Cardiology Consultation ---
Date of Consultation April 06, 2024 Assessment & Plan (1) Heart failure with reduced ejection fraction (HFrEF, <= 40%): (2) Atrial fibrillation: Plan Pmhx: 1. Nonischemic cardiomyopathy with severe left ventricular dysfunction and an EF in the range of 20% 2. Cardiac catheterization at [facility] 08/2023 with minimal epicardial coronary artery disease; wedge pressure of 10 mmHg; pulmonary artery pressure. 42 mmHg over 8 mmHg; RA pressure 2 mmHg: Cardiac output 2.11 L/min; LVEDP of 15 mmHg 3. New atrial fibrillation as of July 2023 (asymptomatic) 4. CKD with a baseline creatinine of 1.4 5. BPH 6. Outside echocardiogram 2023 EF 15 to 20%; global hypokinesis; moderate left atrial enlargement: 7. Longstanding hypertension since his teenage years 8. Severe SHEILA -- AHI 34; O2 sat Carlos 64% with O2 sat <90% 46% of the time 9. Elevated Esm[place]/Lambda levels Dr Gomez is significantly fluid overloaded. I agree with diuresis started by the primary team. His kidney function has improved a bit with the furosemide administered thus far. In the outpatient setting we have had a difficult time establishing a good heart failure regimen with Dr. Gomez due to perceived side effects. I think he may be conflating the weakness and discomfort he is having from fulminant heart failure with a side effect of the medications he is taking. I discussed with him that given his very reduced EF and significant fluid retention, we really need to push GDMT to get him feeling better. Once he has been sufficiently diuresed, I would resume at least his Entresto and hopefully spironolactone as well. He continues on metoprolol. He inquired about switching to Coreg but I would avoid doing so as he does not have the blood pressure room. His heart failure is likely being exacerbated by his afib. He was not able to maintain sinus rhythm after cardioversion this spring. He felt that he was very weak on the amiodarone and so it was discontinued. I discussed with him that he is not going to stay in sinus rhythm without an antiarrhythmic as demonstrated after his last cardioversion. Given his severely reduced EF and heart failure, he is not a candidate for any other antiarrhythmics. His frailty precludes ablation at this time. His rate is controlled on the metoprolol. Pulmonology has been consulted and is planning for thoracentesis on the right for his pleural effusions. This will have to wait until Tuesday after he has had his Eliquis on hold for 48 hours. Troponin was minimally elevated likely related to demand ischemia in the setting of heart failure. Echo pending. I asked if he would be open to a palliative care consult to discuss goals of care and he was agreeable so consult was placed. Case discussed with Dr. Rodriguez. History of Present Illness Attending Physician: Braulio Butler MD History of Present Illness Mr. Gomez presented to the emergency room last night after progressive heart failure symptoms including sob, weakness and edema over the last 3-4 weeks. He initially established with us in the [facility] cardi[facility] clinic in December. He was originally diagnosed with NICM with an EF of 40% in 2021. In July of this year he had worsening heart failure symptoms and was admitted to [facility] for diuresis. His EF was 15-20%. In August he had a catheterization which did not reveal significant coronary disease. He had a CONY cardioversion that month as well but did not stay in sinus rhythm for long. He did not tolerate digoxin due blurred vision or Jardiance due to frequent urination and so these were discontinued. He has also not tolerated amiodarone, Entresto or spironolactone and discontinued their use. Today he notes that he feels he's at 50% of his baseline - he's felt better but not down and out. He's comfortable lying in bed but feels weak and sob whenever he gets up. No chest pain. He has a cough productive of frothy sputum. Allergies Allergy/AdvReac Type Severity Reaction Status Date / Time bee venom protein (honey bee) Allergy SKIN WELTS Verified 04/05/24 18:53 Home Medications Medication Instructions Recorded Confirmed Type apixaban 2.5 mg tablet (Eliquis) 2.5 mg PO BID 04/05/24 04/05/24 History bumetanide 1 mg tablet 1 mg PO QAM 04/05/24 04/05/24 History sacubitril 49 mg-valsartan 51 mg 0.5 tab PO BID 04/05/24 04/05/24 History tablet (Entresto) metoprolol succinate 50 mg 50 mg PO BID #0 tabs 04/09/24 04/05/24 Rx tablet,extended release 24 hr Patient History Medical History (Updated 04/06/24 @ 11:38 by Caryn Gonzalez DNP) CHF (congestive heart failure) HTN (hypertension) with goal to be determined Atrial fibrillation Surgical History Status post lumbar spine operative procedure for decompression of spinal cord Social History Smoking Status: Never smoker Hx Alcohol Use: No Hx Substance Use: No Preferred Language: Solomon Islander Communication Ability: Effective 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: No Beliefs That Will Affect Care: None Current Living Situation: Spouse Current Living Situation Comment: lives at home with Other Information That Helps Us Care for You: No Feels Safe at Home: Yes Safety Concerns: Feels Safe At This Time Assistive Devices: Crutches Review of Systems Review of Systems: All systems reviewed & are unremarkable except as noted in HPI & below Physical Exam Constitutional: WD/WN, vitals as above Respiratory: normal respiratory effort, lungs clear to auscultation Cardiovascular: Rate/Rhythm: + irregularly irregular Extremities: + edema (lower extremities bilaterally) Skin: no rashes, warm and dry Neurologic: moves all extremities and awake Psychiatric: A+Ox3, euthymic affect Results & Data Vital Signs (Past 12 Hours) Vital Signs Temp Pulse Pulse Resp BP Pulse Ox O2 Del Method 04/06/24 07:30 36.4 C L 90 19 125/91 92 Room Air 04/06/24 07:00 81 04/06/24 04:00 36.3 C L 80 17 121/87 95 Room Air 04/05/24 23:37 36.2 C L 68 16 100/72 95 Room Air 04/05/24 22:07 Room Air 04/05/24 22:07 36.4 C L 120 H 20 107/74 92 Room Air 04/05/24 21:36 85 18 129/86 94 Room Air
[2024-04-06] MEDS: FUROSEMIDE 40 MG/4 ML VIAL IV SCH (09:17)
--- NOTE | 2024-04-06 10:07 | Hospitalist Progress Note ---
Date of Service April 06, 2024 Assessment & Plan (1) CHF (congestive heart failure): Plan: Acute on chronic HFrEF Pleural effusion b/l Afib Reportedly diagnosed with Afib in August 2023 on Eliquis, metoprolol previously on amiodarone - reportedly stopped d/t perceived weakness, LE edema worsening EF 15% in August 2023 --> improved to 25-30% in October, on metoprolol succinate, entresto, bumex Presents w/ b/l pl. effusion and worsening shortness of breath hold po bumex, started IV lasix hold eliquis for now, consider poss. thoracentesis - discussed w/ cardiology and pulmonary med. - likely thora over the weekend hold entresto for now BNP elev > 4700 closely monitor on tele Echo ordered Cardiology consulted and discussed with - further management per cardiology monitor I/Os, daily weight replace electrolytes as needed also obtained fasting lipid panel - LDL 62, and A1c 6/8% Hx SHEILA - cpap hs CKD Cr worsening over time pt does not follow w/ nephrology Cr 2.1 on 02/27 On admission Cr 2.1 - cont. to closely monitor renal function while diuresing - current Cr 1.99 - essentially unchanged Admission and Anticipated Discharge Date Admission Date: April 05, 2024 Subjective Pt seen in follow up of CHF exacerb., pl. effusion Pt currently sitting up in bed in NAD, denies any chest pain but has shortness of breath No fevers, chills Discussed w/ cardiology and pulm. at the bedside - plan to continue diuresis and likely thoracentesis over the weekend, eliquis is on hold Review of Systems Review of Systems: All systems reviewed & are unremarkable except as noted in Subjective Physical Exam Physical Exam: Constitutional: obese Min NAD Eyes: PERRL, conjunctiva e normal, anicteri c sclerae ENMT: external ear and n ose normal, oropha rynx normal Neck: supple Respiratory: Auscultation: + cr ackles (at bases), no wheezing Cardiovascular: Rate/Rhythm: + irr egularly irregular Gastrointestinal ( Abdomen): Inspection/Auscult ation: normal heather l sounds Percussi on/Palpation: abdo men soft (obese); abdomen nontender Musculoskeletal: LE edema, b/l, mo ves extremities Skin: no rashes, warm an d dry Neurologic: PERRL, EOMI, no fa ce palsy, no dysar thria, moves extre mities Psychiatric: A+Ox3, euthymic af fect Lymphatic: + lymphedema Results & Data Results & Data Vital Signs (Past 12 Hours) Vital Signs Temp Pulse Pulse Resp BP Pulse Ox O2 Del Method 04/06/24 07:30 36.4 C L 90 19 125/91 92 Room Air 04/06/24 07:00 81 04/06/24 04:00 36.3 C L 80 17 121/87 95 Room Air 04/05/24 23:37 36.2 C L 68 16 100/72 95 Room Air 04/05/24 22:07 Room Air 04/05/24 22:07 36.4 C L 120 H 20 107/74 92 Room Air Laboratory Results 04/06/24 04/05/24 04/05/24 Range/Units 05:41 20:44 20:20 WBC 4.26 L (4.8-10.8) K/ul RBC 5.60 (4.70-6.10) M/uL Hgb 16.1 (14.0-18.0) g/dl Hct 46.6 (42.0-52.0) % MCV 83.2 (80.0-100.0) fL MCH 28.8 (25.0-34.0) pg MCHC 34.5 (32.0-36.0) g/dL RDW Std Deviation 50.3 H (36.4-46.3) fL RDW Coeff of Ilya 16.8 H (11.5-14.5) % Plt Count 184 (130-400) K/uL MPV 12.7 H (9.4-12.4) fL Immature Gran % (Auto) % Neut % (Auto) % Lymph % (Auto) % [place] % (Auto) % Eos % (Auto) % Baso % (Auto) % Neut # (Auto) (1.40-6.50) K/uL Lymph # (Auto) (1.20-3.40) K/uL [place] # (Auto) (0.11-0.59) K/uL Eos # (Auto) (0.00-0.50) K/uL Baso # (Auto) (0.00-0.20) K/uL Immature Gran # (Auto) (0.01-0.20) K/uL Absolute Nucleated RBC (0.00-0.12) K/uL Nucleated RBC % (auto) % PT (9.0-12.0) Seconds INR (0.9-1.1) APTT (21-31) Seconds PTT Ratio Sodium 135 L (136-145) mmol/L Potassium 4.2 (3.5-5.1) mmol/L Chloride 101 (98-107) mmol/L Carbon Dioxide 27 (21-32) mmol/L Anion Gap 7 (3-11) BUN 37 H (6-23) mg/dl Creatinine 1.99 H (0.6-1.4) mg/dl Est Cr Clr Drug Dosing 31.5 eGFR 32.70 BUN/Creatinine Ratio 18.6 (10-20) Glucose 115 H (70-99(Fasting)) mg/dl Estimat Average Glucose 148 mg/dl Hemoglobin A1c 6.8 H (4.5-5.6) % Hgb A1c Pathologist Com Calcium 8.6 (8.6-10.3) mg/dl Phosphorus 3.3 (2.5-4.9) mg/dl Magnesium 2.0 (1.7-2.4) mg/dl Total Bilirubin (0.2-1.0) mg/dl AST (13-39) U/L ALT (7-52) U/L Alkaline Phosphatase (34-104) U/L Troponin I High Sens 54.1 H* (0-20) pg/ml B-Natriuretic Peptide (0-100) pg/ml Total Protein (6.0-8.3) gm/dl Albumin (3.4-5.0) gm/dl Globulin (2.5-4.0) gm/dl Albumin/Globulin Ratio (0.9-2) Triglycerides 55 (0-150) mg/dl Cholesterol 119 (0-200) mg/dl LDL Cholesterol, Calc 62 mg/dl VLDL Cholesterol, Calc 11 (0-30) mg/dl HDL Cholesterol 46 mg/dl Cholesterol/HDL Ratio 2.6 (0-5) Urine Color Yellow Urine Appearance Clear (Clear) Urine pH 5.5 (4.5-7.5) Ur Specific [place] 1.010 (1.000-1.030) Urine Protein Negative (Negative) Urine Glucose (UA) Negative (Negative) Urine Ketones Negative (Negative) Urine Blood Negative (Negative) Urine Nitrite Negative (Negative) Urine Bilirubin Negative (Negative) Urine Urobilinogen Negative (Negative) Ur Leukocyte Esterase Negative (Negative) 04/05/24 04/05/24 Range/Units 18:39 16:08 WBC 5.45 (4.8-10.8) K/ul RBC 5.69 (4.70-6.10) M/uL Hgb 16.8 (14.0-18.0) g/dl Hct 47.4 (42.0-52.0) % MCV 83.3 (80.0-100.0) fL MCH 29.5 (25.0-34.0) pg MCHC 35.4 (32.0-36.0) g/dL RDW Std Deviation 51.6 H (36.4-46.3) fL RDW Coeff of Ilya 17.3 H (11.5-14.5) % Plt Count 167 (130-400) K/uL MPV 11.4 (9.4-12.4) fL Immature Gran % (Auto) 0.2 % Neut % (Auto) 77.2 % Lymph % (Auto) 14.3 % [place] % (Auto) 7.3 % Eos % (Auto) 0.6 % Baso % (Auto) 0.4 % Neut # (Auto) 4.21 (1.40-6.50) K/uL Lymph # (Auto) 0.78 L (1.20-3.40) K/uL [place] # (Auto) 0.40 (0.11-0.59) K/uL Eos # (Auto) 0.03 (0.00-0.50) K/uL Baso # (Auto) 0.02 (0.00-0.20) K/uL Immature Gran # (Auto) 0.01 (0.01-0.20) K/uL Absolute Nucleated RBC 0.02 (0.00-0.12) K/uL Nucleated RBC % (auto) 0.4 % PT 12.2 H (9.0-12.0) Seconds INR 1.1 (0.9-1.1) APTT 29 (21-31) Seconds PTT Ratio 1.1 Sodium 133 L (136-145) mmol/L Potassium 4.5 (3.5-5.1) mmol/L Chloride 98 (98-107) mmol/L Carbon Dioxide 28 (21-32) mmol/L Anion Gap 7 (3-11) BUN 40 H (6-23) mg/dl Creatinine 2.13 H (0.6-1.4) mg/dl Est Cr Clr Drug Dosing Not Reportable eGFR 30.14 BUN/Creatinine Ratio 18.8 (10-20) Glucose 124 H (70-99(Fasting)) mg/dl Estimat Average Glucose mg/dl Hemoglobin A1c (4.5-5.6) % Hgb A1c Pathologist Com Calcium 9.0 (8.6-10.3) mg/dl Phosphorus (2.5-4.9) mg/dl Magnesium 2.1 (1.7-2.4) mg/dl Total Bilirubin 1.2 H (0.2-1.0) mg/dl AST 39 (13-39) U/L ALT 35 (7-52) U/L Alkaline Phosphatase 134 H (34-104) U/L Troponin I High Sens 61.5 H* D 50.9 H* (0-20) pg/ml B-Natriuretic Peptide > 4700 H (0-100) pg/ml Total Protein 6.1 (6.0-8.3) gm/dl Albumin 3.8 (3.4-5.0) gm/dl Globulin 2.3 L (2.5-4.0) gm/dl Albumin/Globulin Ratio 1.7 (0.9-2) Triglycerides (0-150) mg/dl Cholesterol (0-200) mg/dl LDL Cholesterol, Calc mg/dl VLDL Cholesterol, Calc (0-30) mg/dl HDL Cholesterol mg/dl Cholesterol/HDL Ratio (0-5) Urine Color Urine Appearance (Clear) Urine pH (4.5-7.5) Ur Specific [place] (1.000-1.030) Urine Protein (Negative) Urine Glucose (UA) (Negative) Urine Ketones (Negative) Urine Blood (Negative) Urine Nitrite (Negative) Urine Bilirubin (Negative) Urine Urobilinogen (Negative) Ur Leukocyte Esterase (Negative) Medications Administered Current Inpatient Medications Acetaminophen (Acetaminophen 325 Mg Tab) 650 mg PO Q4H PRN PRN Reason: Pain or Fever Stop: 05/05/24 19:24 Furosemide (Furosemide 40 Mg/4 Ml Vial) 40 mg IV BID [facility] Stop: 05/06/24 08:59 Last Admin: 04/06/24 09:17 Dose: 40 mg Metoprolol Succinate (Metoprolol Succ 50mg Ext Rel Tab) 50 mg PO BID [facility] Stop: 05/05/24 22:04 Last Admin: 04/06/24 09:17 Dose: 50 mg Polyethylene Glycol (Polyethylene (Miralax) 17 Gm Pack) 17 gm PO DAILY PRN PRN Reason: Constipation Stop: 05/05/24 19:24
--- NOTE | 2024-04-06 11:13 | Palliative Care Consultation ---
Date of Consultation April 06, 2024 Assessment & Plan (1) Dyspnea due to congestive heart failure: (2) Dyspnea and respiratory abnormalities: (3) Palliative care by specialist: Introduced Palliative Medicine and explained our role in patient's care. Patient and/or family were receptive to palliative services for goals of care discussions. Reviewed we are different from hospice, a home health nurse visiting service. (4) Advanced care planning/counseling discussion: ACAP face to face with pt at bedside for 25min: Kevin advised he is tired of being asked so many questions and he "wants to watch TV and rest." He complained of sleep related breathing issues and feels his heart would feel better if we gave him oxygen with sleep. He says his [facility] restaurant area director obtained an overnight oximetry, so it may be worthwhile tracking that down as he said he got admitted before he could be told the results. He was unable to demonstrate much insight into his heart failure and repeatedly stated the heart will be better once we give him oxygen with sleep. He wants to stay a full code "because there isn't anything wrong with me that I am going to ." There was no family present. He refused to discuss any goals of care. 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 I am in clinic on Mondays and return to hospital Tuesday. I can follow up then and am available by telemed thru the weekend if any urgent issues arise. If there is anything urgently needed on Tuesday, my partner, Travis Álvarez, can be paged to try and assist. Thank you for allowing us to participate in the ongoing care of this patient. Please page with any additional concerns. Joel Gonzalez DNP Director, Palliative Medicine History of Present Illness Reason for Consultation: heart failure, goals of care Attending Physician: Braulio Butler MD History of Present Illness Mr. Gomez is 83yo male admitted with acute on chronic HFrEF, bilat pleural effusion right greater than left and Afib which was initially dx August 2023. He remains on Eliquis, metoprolol and was previously on amiodarone but elected to stop perceived weakness, LE edema worsening. CT of the chest revealed moderate compressive atelectasis with fluid accumulated in the fissure as well. Pulm consultation noted. He is not hypoxic and not requiring supplemental oxygen In ER, reported patient had a chest x-ray on Tuesday and she produced the CXR report, showing dense opacification and possible collapse of the right middle lobe. PMH: A-fib, CHF, cirrhosis, CKD, SHEILA EF 15% in August 2023 --> improved to 25-30% in October, on metoprolol succinate, entresto, bumex He came to ED with worsening shortness of breath; his bumex is on hold and IV lasix has been started; eliquis and entresto on hold BNP elev > 4700 Echo ordered Cardiology consulted: 1. Nonischemic cardiomyopathy with severe left ventricular dysfunction and an EF in the range of 20% 2. [facility] with minimal epicardial coronary artery disease; wedge pressure of 10 mmHg; pulmonary artery pressure. 42 mmHg over 8 mmHg; RA pressure 2 mmHg: Cardiac output 2.11 L/min; LVEDP of 15 mmHg 3. New atrial fibrillation as of July 2023 (asymptomatic) 4. CKD with a baseline creatinine of 1.4 5. BPH 6. Outside echocardiogram 2023 EF 15 to 20%; global hypokinesis; moderate left atrial enlargement: 7. Longstanding hypertension since his teenage years 8. Severe SHEILA -- AHI 34; O2 sat [place] 64% with O2 sat <90% 46% of the time 9. Elevated [place]/Lambda levels Allergies Allergy/AdvReac Type Severity Reaction Status Date / Time bee venom protein (honey bee) Allergy SKIN WELTS Verified 04/05/24 18:53 Home Medications Medication Instructions Recorded Confirmed Type apixaban 2.5 mg tablet (Eliquis) 2.5 mg PO BID 04/05/24 04/05/24 History bumetanide 1 mg tablet 1 mg PO QAM 04/05/24 04/05/24 History metoprolol succinate 50 mg 50 mg PO TID 04/05/24 04/05/24 History tablet,extended release 24 hr sacubitril 49 mg-valsartan 51 mg 0.5 tab PO BID 04/05/24 04/05/24 History tablet (Entresto) Patient History Medical History (Updated 04/06/24 @ 11:38 by Caryn Gonzalez DNP) CHF (congestive heart failure) HTN (hypertension) with goal to be determined Atrial fibrillation Surgical History Status post lumbar spine operative procedure for decompression of spinal cord Social History Smoking Status: Never smoker Hx Alcohol Use: No Hx Substance Use: No Preferred Language: Telugu Communication Ability: Effective Senior Environmental Practice Leader Required: No Beliefs That Will Affect Care: None Current Living Situation: Spouse Current Living Situation Comment: lives at home with Other Information That Helps Us Care for You: No Feels Safe at Home: Yes Safety Concerns: Feels Safe At This Time Assistive Devices: Crutches Review of Systems Review of Systems: All systems reviewed & are unremarkable except as noted in Subjective Physical Exam Physical Exam: elderly male semi reclined in bed mild bitemp wasting inattentive at times, easily distracted by television perrla, EOMIs pharynx pink, no thrush neck without stridor Lungs diminished bilat, no overt rales, wheezes or rhonchi CV S1S2; Abd soft, obese, NTP Ext without clubbing or cyanosis, +2 edema BLE Skin pale, cool AAOx3 irritable baseline mood, +perseveration, +limited insight Results & Data Vital Signs (Past 12 Hours) Vital Signs Temp Pulse Pulse Resp BP Pulse Ox O2 Del Method 04/06/24 07:30 36.4 C L 90 19 125/91 92 Room Air 04/06/24 07:00 81 04/06/24 04:00 36.3 C L 80 17 121/87 95 Room Air 04/05/24 23:37 36.2 C L 68 16 100/72 95 Room Air Laboratory Results 04/06/24 04/05/24 04/05/24 Range/Units 05:41 20:44 20:20 WBC 4.26 L (4.8-10.8) K/ul RBC 5.60 (4.70-6.10) M/uL Hgb 16.1 (14.0-18.0) g/dl Hct 46.6 (42.0-52.0) % MCV 83.2 (80.0-100.0) fL MCH 28.8 (25.0-34.0) pg MCHC 34.5 (32.0-36.0) g/dL RDW Std Deviation 50.3 H (36.4-46.3) fL RDW Coeff of Ilya 16.8 H (11.5-14.5) % Plt Count 184 (130-400) K/uL MPV 12.7 H (9.4-12.4) fL Immature Gran % (Auto) % Neut % (Auto) % Lymph % (Auto) % [place] % (Auto) % Eos % (Auto) % Baso % (Auto) % Neut # (Auto) (1.40-6.50) K/uL Lymph # (Auto) (1.20-3.40) K/uL [place] # (Auto) (0.11-0.59) K/uL Eos # (Auto) (0.00-0.50) K/uL Baso # (Auto) (0.00-0.20) K/uL Immature Gran # (Auto) (0.01-0.20) K/uL Absolute Nucleated RBC (0.00-0.12) K/uL Nucleated RBC % (auto) % PT (9.0-12.0) Seconds INR (0.9-1.1) APTT (21-31) Seconds PTT Ratio Sodium 135 L (136-145) mmol/L Potassium 4.2 (3.5-5.1) mmol/L Chloride 101 (98-107) mmol/L Carbon Dioxide 27 (21-32) mmol/L Anion Gap 7 (3-11) BUN 37 H (6-23) mg/dl Creatinine 1.99 H (0.6-1.4) mg/dl Est Cr Clr Drug Dosing 31.5 eGFR 32.70 BUN/Creatinine Ratio 18.6 (10-20) Glucose 115 H (70-99(Fasting)) mg/dl Estimat Average Glucose 148 mg/dl Hemoglobin A1c 6.8 H (4.5-5.6) % Hgb A1c Pathologist Com Calcium 8.6 (8.6-10.3) mg/dl Phosphorus 3.3 (2.5-4.9) mg/dl Magnesium 2.0 (1.7-2.4) mg/dl Total Bilirubin (0.2-1.0) mg/dl AST (13-39) U/L ALT (7-52) U/L Alkaline Phosphatase (34-104) U/L Troponin I High Sens 54.1 H* (0-20) pg/ml B-Natriuretic Peptide (0-100) pg/ml Total Protein (6.0-8.3) gm/dl Albumin (3.4-5.0) gm/dl Globulin (2.5-4.0) gm/dl Albumin/Globulin Ratio (0.9-2) Triglycerides 55 (0-150) mg/dl Cholesterol 119 (0-200) mg/dl LDL Cholesterol, Calc 62 mg/dl VLDL Cholesterol, Calc 11 (0-30) mg/dl HDL Cholesterol 46 mg/dl Cholesterol/HDL Ratio 2.6 (0-5) Urine Color Yellow Urine Appearance Clear (Clear) Urine pH 5.5 (4.5-7.5) Ur Specific [place] 1.010 (1.000-1.030) Urine Protein Negative (Negative) Urine Glucose (UA) Negative (Negative) Urine Ketones Negative (Negative) Urine Blood Negative (Negative) Urine Nitrite Negative (Negative) Urine Bilirubin Negative (Negative) Urine Urobilinogen Negative (Negative) Ur Leukocyte Esterase Negative (Negative) 04/05/24 04/05/24 Range/Units 18:39 16:08 WBC 5.45 (4.8-10.8) K/ul RBC 5.69 (4.70-6.10) M/uL Hgb 16.8 (14.0-18.0) g/dl Hct 47.4 (42.0-52.0) % MCV 83.3 (80.0-100.0) fL MCH 29.5 (25.0-34.0) pg MCHC 35.4 (32.0-36.0) g/dL RDW Std Deviation 51.6 H (36.4-46.3) fL RDW Coeff of Ilya 17.3 H (11.5-14.5) % Plt Count 167 (130-400) K/uL MPV 11.4 (9.4-12.4) fL Immature Gran % (Auto) 0.2 % Neut % (Auto) 77.2 % Lymph % (Auto) 14.3 % [place] % (Auto) 7.3 % Eos % (Auto) 0.6 % Baso % (Auto) 0.4 % Neut # (Auto) 4.21 (1.40-6.50) K/uL Lymph # (Auto) 0.78 L (1.20-3.40) K/uL [place] # (Auto) 0.40 (0.11-0.59) K/uL Eos # (Auto) 0.03 (0.00-0.50) K/uL Baso # (Auto) 0.02 (0.00-0.20) K/uL Immature Gran # (Auto) 0.01 (0.01-0.20) K/uL Absolute Nucleated RBC 0.02 (0.00-0.12) K/uL Nucleated RBC % (auto) 0.4 % PT 12.2 H (9.0-12.0) Seconds INR 1.1 (0.9-1.1) APTT 29 (21-31) Seconds PTT Ratio 1.1 Sodium 133 L (136-145) mmol/L Potassium 4.5 (3.5-5.1) mmol/L Chloride 98 (98-107) mmol/L Carbon Dioxide 28 (21-32) mmol/L Anion Gap 7 (3-11) BUN 40 H (6-23) mg/dl Creatinine 2.13 H (0.6-1.4) mg/dl Est Cr Clr Drug Dosing Not Reportable eGFR 30.14 BUN/Creatinine Ratio 18.8 (10-20) Glucose 124 H (70-99(Fasting)) mg/dl Estimat Average Glucose mg/dl Hemoglobin A1c (4.5-5.6) % Hgb A1c Pathologist Com Calcium 9.0 (8.6-10.3) mg/dl Phosphorus (2.5-4.9) mg/dl Magnesium 2.1 (1.7-2.4) mg/dl Total Bilirubin 1.2 H (0.2-1.0) mg/dl AST 39 (13-39) U/L ALT 35 (7-52) U/L Alkaline Phosphatase 134 H (34-104) U/L Troponin I High Sens 61.5 H* D 50.9 H* (0-20) pg/ml B-Natriuretic Peptide > 4700 H (0-100) pg/ml Total Protein 6.1 (6.0-8.3) gm/dl Albumin 3.8 (3.4-5.0) gm/dl Globulin 2.3 L (2.5-4.0) gm/dl Albumin/Globulin Ratio 1.7 (0.9-2) Triglycerides (0-150) mg/dl Cholesterol (0-200) mg/dl LDL Cholesterol, Calc mg/dl VLDL Cholesterol, Calc (0-30) mg/dl HDL Cholesterol mg/dl Cholesterol/HDL Ratio (0-5) Urine Color Urine Appearance (Clear) Urine pH (4.5-7.5) Ur Specific [place] (1.000-1.030) Urine Protein (Negative) Urine Glucose (UA) (Negative) Urine Ketones (Negative) Urine Blood (Negative) Urine Nitrite (Negative) Urine Bilirubin (Negative) Urine Urobilinogen (Negative) Ur Leukocyte Esterase (Negative) Diagnostic Findings Abdomen/Pelvis CT 04/05/24 16:52 EXAMINATION: Abdomen and pelvis CT without CLINICAL HISTORY: Chest pain, CHF PRIORS: None TECHNIQUE: Contiguous axial images were obtained through the abdomen and pelvis without the use of intravenous contrast. Sagittal and coronal reformations are supplied. FINDINGS: Large bilateral pleural effusions present at the edge of the [id number], right greater than left. Anasarca noted. Evaluation of solid organs is limited without the use of intravenous contrast. Allowing for this, the liver has heterogeneous appearance with possible nodular margin which could suggest cirrhosis. Mild ascites is present. The gallbladder contains high density material and is not further characterized. The pancreas is atrophic and unremarkable. Spleen, stomach and adrenals are morphologically unremarkable. Moderate atherosclerotic disease of the abdominal aorta. Kidneys are atrophic with no hydronephrosis. Moderate circumferential urinary bladder wall thickening is present with perivesicular inflammatory change. Small amount of free fluid present in the pelvis. Chest CT without A moderate amount of formed stool present in the colon. No dilated loops of bowel or pericolonic inflammatory change. No significant diverticulosis. A discrete appendix is not identified. Small bilateral inguinal hernias containing fat. In bone windows, moderate osseous demineralization noted. Advanced degenerative change throughout the lumbar spine with lordotic straightening. No high-grade compression fracture. IMPRESSION: 1. CT features which may suggest hepatic cirrhosis with mild ascites and diffuse body wall edema/anasarca. 2. Circumferential urinary bladder wall thickening with perivesicular inflammatory change which could represent acute cystitis in the proper clinical setting. 3. Large bilateral pleural effusions. Chest CT dictated under separate heading. Electronically signed by Jael Gilliland 04-05-2024 5:[address] 04/05/24 16:52 EXAMINATION: Chest CT without CLINICAL HISTORY: Chest pain, CHF, abnormal chest x-ray COMPARISON: None TECHNIQUE: Contiguous axial images were obtained through the chest without the use of intravenous contrast. Sagittal and coronal reformations are supplied. FINDINGS: Large right and moderate left pleural effusions are present. Compressive atelectasis is noted. Bilateral lungs upper lobes are unremarkable. Heart size is moderately enlarged. A left-sided aortic arch is present with moderate atherosclerotic disease of the aorta and coronary arteries. A trace pericardial effusion noted. The trachea and mainstem bronchi are patent. No radiopaque foreign body. No adenopathy in the chest. Gas present in the esophagus lumen. Body wall edema/anasarca is present. No supraclavicular or axillary adenopathy. Fluid surrounding the right shoulder, likely degenerative change with [id number] appearance of the glenohumeral joint. In bone windows mild kyphosis and osseous demineralization. Multilevel anterior bridging osteophytes noted. No fracture or pneumothorax. IMPRESSION: 1. Large right and moderate left pleural effusions with compressive atelectasis. 2. Moderate enlargement of the heart with aortic and coronary artery atherosclerotic disease. 3. Anasarca. Electronically signed by Jael Gilliland 04-05-2024 5:26 PM Chest X-Ray 04/06/24 08:00 EXAM: XR chest 1V portable CLINICAL HISTORY: FOLLOW UP PORTABLE BME/KAB TECHNIQUE: An X-ray image of the chest is obtained in AP projection. COMPARISON: 04/05/2024 CT. FINDINGS: Right lung lower zone homogenous opacity likely due to large effusion with underlying lung atelectasis (unchanged). Left lung lower zone homogenous opacity likely due to mild effusion (unchanged) Cardiomegaly (unchanged). No mediastinal widening or masses. No hilar or mediastinal lymphadenopathy. The bony thorax appears intact without fractures or deformities. Soft tissues overlying the chest wall are unremarkable. IMPRESSION: Right lung lower zone homogenous opacity likely due to large effusion with underlying lung atelectasis (unchanged). Left lung lower zone homogenous opacity likely due to mild effusion (unchanged). Cardiomegaly (unchanged). Electronically signed by Stormy Serrano 04-06-2024 07:39 AM PG Care Time/CCT Total # of Minutes Spent Total Time Spent with Patient: Total time spent is greater than 50% in coordination of care (as documented) at patient's floor/unit and/or counseling patient: I spent 85 minutes overall addressing this case: 15 min in medical data review/discussion with referring provider(s) and/or preparation for the visit 15 min in direct interaction with the patient/exam 25 min in Advance Care Planning/Goals of Care discussions as detailed above in note (must be >16min) 15 min in subsequent review and synthesis of assessment and plan 15 min communicating with other providers regarding the patient's case: primary, nursing, care mgt, cardiology Advanced Care Planning 31817 Advanced Care Planning 30 [place] [address] IN/OBS CONSULT LVL 4,60M (25 - SIGNIFICANT, SEPARATELY IDENTIFIABLE ) Patient Type New History Comprehensive Exam Comprehensive Medical Decision Making High Complexity Diagnoses Dyspnea due to congestive heart failure I50.9 Dyspnea and respiratory abnormalities R06.00; R06.89 Palliative care by specialist Z51.5 Advanced care planning/counseling discussion Z71.89 Heart failure with reduced ejection fraction (HFrEF, <= 40%) I50.20 Additional Codes Advanced Care Planning - 80048 Advanced Care Planning 30 Min: 93434 Advanced Care Planning 30 Min ([id number])
[2024-04-07 07:44] LABS: Hematocrit (blood only) 46.3 % (42.0-52.0); Hemoglobin 16.5 g/dl (14.0-18.0); Mean Corpuscular Hemoglobin 29.5 pg (25.0-34.0); Mean Corpuscular Hgb Conc 35.6 g/dL (32.0-36.0); Mean Corpuscular Volume 82.7 fL (80.0-100.0); Mean Platelet Volume 12.6 fL (9.4-12.4); Platelet Count 187 K/uL (130-400); RDW Coefficient of Variation 17.1 % (11.5-14.5); RDW Standard Deviation 50.9 fL (36.4-46.3); White Blood Count 4.29 K/ul (4.8-10.8)
--- NOTE | 2024-04-07 07:56 | Pulmonology Progress Note ---
Date of Service April 07, 2024 Assessment & Plan (1) Bilateral pleural effusion: (2) Acute dyspnea: (3) CKD (chronic kidney disease): (4) Anasarca: (5) CHF exacerbation: Plan IMPRESSION: 83-year-old male with significant past medical history of A-fib, CHF, cirrhosis, and CKD who presented to the hospital in the setting of dyspnea on exertion with findings consistent with bilateral RIGHT greater than left pleural effusions. Anticoagulation has been withheld and the patient will undergo thoracentesis today RECOMMENDATIONS: 1. Bilateral pleural effusions -suspect related to heart failure or potentially cirrhosis or combination of the 2. Transudative etiology favored. Continued management with diuretics as tolerated. If the patient kidney function deformed clients, may need to consider dialysis. Patient states he would need to talk about this with his . Will plan on proceeding with therapeutic diagnostic thoracentesis on the right today. Serial thoracentesis is not a recommended management strategy for patients with heart failure, fluid overload, or hepatic hydrothorax. 2. SHEILA -patient's comorbid conditions including heart failure would make him not a candidate for home testing as it would not be able to assess for Konrad- Mcneil respirations which may not be appropriately treated with CPAP. In addition, auto titrating CPAP may not be appropriate in this patient. Recommend that he follow-up in the outpatient setting with sleep medicine or with us to review his compliance data, sleep study, and determine appropriate next plan of action. 3. Dyspnea - Likely secondary to #1. Pulmonary will sign off after thoracentesis is completed. Admission and Anticipated Discharge Date Admission Date: April 05, 2024 Subjective Patient seen and examined. EMR reviewed. The patient reports he feels about the same. He continues to have issues with anasarca. He is open to the prospect of thoracentesis today. Risks and benefits were discussed with him. He is agreeable to proceed. Review of Systems 2 Review of Systems: All systems reviewed & are unremarkable except as noted in Subjective Physical Exam 2 Constitutional: WD/WN, vitals as above Neck: trachea midline, no thyromegaly Respiratory: no respiratory distress, no labored breathing, no cough and not tachypneic Auscultation: + diminished lung sounds and + crackles Decreased lung sounds bilateral bases with dullness to percussion Cardiovascular: Rate/Rhythm: regular rate Heart Sounds: normal S1, normal S2 and + murmur Extremities: + edema Gastrointestinal (Abdomen): normal bowel sounds, soft, nontender, no hepatosplenomegaly Musculoskeletal: Extremities: extremities normal to inspection Skin: no rashes, warm and dry Neurologic: Nonfocal exam Lymphatic: no cervical lymphadenopathy Results & Data Results & Data Vital Signs (Past 12 Hours) Vital Signs Temp Pulse Pulse Resp BP Pulse Ox O2 Del Method 04/07/24 07:20 36.5 C 76 19 138/90 96 Room Air 04/07/24 04:09 36.5 C 69 18 129/91 92 Room Air 04/06/24 23:24 36.5 C 81 18 112/80 97 Room Air 04/06/24 22:22 76 04/06/24 20:25 Room Air 04/06/24 20:07 36.4 C L 74 18 121/85 94 Room Air Laboratory Results 04/07/24 07:01 Diagnostic Findings No new imaging PG Care Time/CCT Total # of Minutes Spent Total Time Spent with Patient: Total time spent is greater than 50% in coordination of care (as documented) at patient's floor/unit and/or counseling patient: Coding Level of Care Code 56037 SUB INP/OBS CARE 2/35MIN Diagnoses Bilateral pleural effusion J90 Acute dyspnea R06.00 CKD (chronic kidney disease) N18.9 Anasarca R60.1 CHF exacerbation I50.9
--- NOTE | 2024-04-07 07:58 | Procedure Note ---
Procedure Note Date of Service April 07, 2024 Procedure: Diagnostic therapeutic ultrasound-guided catheter thoracentesis Coding Educator: Dr. Hussain Rose Indication: Pleural effusion Consent: Signed by patient and verified with timeout prior to procedure Anesthesia: 8 mL's 1% lidocaine without epinephrine local. Procedure: Consent was verified and timeout performed. Appropriate imaging studies were reviewed prior to the procedure. Patient was placed in a seated position and limited thoracic ultrasound was performed of the bilateral chest. A small left effusion was identified with a moderate-sized right effusion with compressive atelectasis noted. Site appropriate for thoracentesis on the right was marked. The skin was prepped and draped in normal sterile fashion. Lidocaine was used for local analgesia. Fluid was aspirated via the finder needle. A small skin jose was made with the scalpel and the catheter over the needle apparatus was advanced over the rib into the pleural space. Using the syringe one-way valve system, a total of 1500 mL's of clear yellow fluid was removed. Procedure was terminated due to patient cough. The catheter was removed and observed to be intact. A sterile dressing was applied. Post procedure chest x-ray was ordered. Fluid was sent for cytology, cell count differential, Gram stain and culture, LDH, glucose, total protein. The patient tolerated the procedure well without obvious complication If the patient requires additional therapeutic thoracentesis, would recommend consultation with interventional radiology. Aggressive diuretics recommended. [facility] Procedure Codes (Charges) Pulmonary/Thoracic Procedure 1: Pulmonary and Thoracic: 66735 Thoracentesis w imaging Coding CPT Codes Pulmonary/Thoracic - Pulmonary and Thoracic: 90472 Thoracentesis w imaging ([id number]) Additional Codes Date of Service (PG.SURGERY)
[2024-04-07 08:15] LABS: Anion Gap 6 (3-11); BUN Creatinine Ratio 17.5 (10-20); Blood Urea Nitrogen 37 mg/dl (6-23); Calcium 8.7 mg/dl (8.6-10.3); Carbon Dioxide 31 mmol/L (21-32); Chloride 100 mmol/L (98-107); Glucose 105 mg/dl (70-99(Fasting)); Magnesium 2.1 mg/dl (1.7-2.4); Phosphorus 3.3 mg/dl (2.5-4.9); Sodium 137 mmol/L (136-145)
[2024-04-07 08:29] LABS: Glucose Pleural Fluid 129 mg/dl; LDH Pleural Fluid 52 U/L; Total Protein Pleural Fluid < 3.0 gm/dl
--- NOTE | 2024-04-07 08:33 | Hospitalist Progress Note ---
Date of Service April 07, 2024 Assessment & Plan (1) CHF (congestive heart failure): Plan: Acute on chronic HFrEF Pleural effusion b/l Afib Reportedly diagnosed with Afib in August 2023 on Eliquis, metoprolol previously on amiodarone - reportedly stopped d/t perceived weakness, LE edema worsening EF 15% in August 2023 --> improved to 25-30% in October, on metoprolol succinate, entresto, bumex Presents w/ b/l pl. effusion and worsening shortness of breath hold po bumex, started IV lasix hold eliquis for now, consider poss. thoracentesis - discussed w/ cardiology and pulmonary med. - likely thora over the weekend hold entresto for now BNP elev > 4700 closely monitor on tele Echo ordered Cardiology consulted and discussed with - further management per cardiology monitor I/Os, daily weight replace electrolytes as needed also obtained fasting lipid panel - LDL 62, and A1c 6.8% Hx SHEILA - cpap hs CKD Cr worsening over time pt does not follow w/ nephrology Cr 2.1 on 02/27 On admission Cr 2.1 - cont. to closely monitor renal function while diuresing - current Cr 2.1 Admission and Anticipated Discharge Date Admission Date: April 05, 2024 Subjective Pt seen in follow up of CHF exacerb., pl. effusion s/p thoracentesis this AM Pt currently sitting up in bed in NAD, denies any chest pain but has shortness of breath No fevers, chills Discussed w/ pulm. - resume eliquis tmrw Review of Systems Review of Systems: All systems reviewed & are unremarkable except as noted in Subjective Physical Exam Physical Exam: Constitutional: obese Min NAD Eyes: PERRL, conjunctiva e normal, anicteri c sclerae ENMT: external ear and n ose normal, oropha rynx normal Neck: supple Respiratory: Auscultation: + cr ackles (at bases), no wheezing Cardiovascular: Rate/Rhythm: + irr egularly irregular Gastrointestinal ( Abdomen): Inspection/Auscult ation: normal heather l sounds Percussi on/Palpation: abdo men soft (obese); abdomen nontender Musculoskeletal: LE edema, b/l, mo ves extremities Skin: no rashes, warm an d dry Neurologic: PERRL, EOMI, no fa ce palsy, no dysar thria, moves extre mities Psychiatric: A+Ox3, euthymic af fect Lymphatic: + lymphedema Results & Data Results & Data Vital Signs (Past 12 Hours) Vital Signs Temp Pulse Pulse Resp BP Pulse Ox O2 Del Method 04/07/24 07:20 36.5 C 76 19 138/90 96 Room Air 04/07/24 04:09 36.5 C 69 18 129/91 92 Room Air 04/06/24 23:24 36.5 C 81 18 112/80 97 Room Air 04/06/24 22:22 76 Laboratory Results 04/07/24 04/07/24 Range/Units Unknown 07:01 WBC 4.29 L (4.8-10.8) K/ul RBC 5.60 (4.70-6.10) M/uL Hgb 16.5 (14.0-18.0) g/dl Hct 46.3 (42.0-52.0) % MCV 82.7 (80.0-100.0) fL MCH 29.5 (25.0-34.0) pg MCHC 35.6 (32.0-36.0) g/dL RDW Std Deviation 50.9 H (36.4-46.3) fL RDW Coeff of Ilya 17.1 H (11.5-14.5) % Plt Count 187 (130-400) K/uL MPV 12.6 H (9.4-12.4) fL Sodium 137 (136-145) mmol/L Potassium TNP Chloride 100 (98-107) mmol/L Carbon Dioxide 31 (21-32) mmol/L Anion Gap 6 (3-11) BUN 37 H (6-23) mg/dl Creatinine 2.11 H (0.6-1.4) mg/dl Est Cr Clr Drug Dosing 29.0 ml/min eGFR 30.48 BUN/Creatinine Ratio 17.5 (10-20) Glucose 105 H (70-99(Fasting)) mg/dl Calcium 8.7 (8.6-10.3) mg/dl Phosphorus 3.3 (2.5-4.9) mg/dl Magnesium 2.1 (1.7-2.4) mg/dl Fluid Neutrophils % Pending Fluid Comment Pleural Fluid Source Pending Pleural Color Pending Pleural Appearance Pending Pleural Total Protein < 3.0 gm/dl Pleural LDH 52 U/L Pleural Glucose 129 mg/dl Medications Administered Current Inpatient Medications Acetaminophen (Acetaminophen 325 Mg Tab) 650 mg PO Q4H PRN PRN Reason: Pain or Fever Stop: 05/05/24 19:24 Furosemide (Furosemide 40 Mg/4 Ml Vial) 40 mg IV BID [facility] Stop: 05/06/24 08:59 Last Admin: 04/06/24 19:34 Dose: 40 mg Metoprolol Succinate (Metoprolol Succ 50mg Ext Rel Tab) 50 mg PO BID [facility] Stop: 05/05/24 22:04 Last Admin: 04/06/24 19:34 Dose: 50 mg Polyethylene Glycol (Polyethylene (Miralax) 17 Gm Pack) 17 gm PO DAILY PRN PRN Reason: Constipation Stop: 05/05/24 19:24
[2024-04-07 08:36] LABS: Appearance Pleural Fluid Clear; Color Pleural Fluid Yellow; RBC Pleural Fluid Auto < 2000 /uL; Source Pleural Fluid Right Lung; WBC Pleural Fluid Auto 118 /uL
--- NOTE | 2024-04-07 08:47 | XRay Report ---
EXAM: Radiograph of the Chest 1 View INDICATION: Thoracentesis. TECHNIQUE: Frontal view of the chest. COMPARISON: 04/06/2024 FINDINGS: Lungs and pleural spaces: New small left pleural effusion. Right pleural effusion layers more dependently and is probably slightly smaller. No visible pneumothorax although portions of the right apex are obscured by the patient's neck. There is improved aeration of the right lung base and new compressive atelectasis in the left base. Heart: Stable large cardiac shadow. Mediastinum: Normal contour. Bones/joints: Degenerative changes noted throughout the spine and both shoulders. No lytic or blastic lesions noted. Soft tissues: No abnormality noted. No radiopaque foreign body noted. Vasculature: Stable dilated ectatic aorta. Upper abdomen: No abnormality noted. IMPRESSION: 1. No pneumothorax. 2. Minimal decreased right basilar pleural and parenchymal changes. 3. New left basilar small pleural effusion and airspace consolidation. Consider compressive atelectasis, mucous plugging and developing pneumonia. ACT 112: Negative or not required by law. Electronically signed by Concha Ball 04-07-2024 08:47 AM
[2024-04-07 08:48] LABS: Basophils, Fluid 1 %; Lymphocytes, Fluid 27 %; Mono,Macrophage,Mesothelial 30 %; Neutrophils, Fluid 42 %
--- NOTE | 2024-04-07 10:23 | Electrocardiogram Report ---
Test Reason : Blood Pressure : */* mmHG Vent. Rate : 85 BPM Atrial Rate : * BPM P-R Int : * ms QRS Dur : 82 ms QT Int : 356 ms P-R-T Axes : * -57 121 degrees QTcB Int : 423 ms Atrial fibrillation Left axis deviation Poor R wave progression, consider anterior UT vs. lead placement vs. LVH Abnormal ECG No previous ECGs available Confirmed by Favian Marrero ([id number]) on 04/07/2024 10:23:47 AM Referred By: REFERRED SELF Confirmed By: Favian Marrero
--- NOTE | 2024-04-07 13:27 | Cardiology Progress Note ---
Date of Service April 07, 2024 Assessment & Plan (1) Heart failure with reduced ejection fraction (HFrEF, <= 40%): Plan: -The patient is still hypervolemic. -Would not continue Lasix 40 Mg IV twice daily until BUN and creatinine increase. -Continue metoprolol succinate. -Consider restarting Entresto and spironolactone. (2) Atrial fibrillation: Plan: -Has been present since July. -Rate adequately controlled on metoprolol succinate. -Consider restarting amiodarone. Admission and Anticipated Discharge Date Admission Date: April 05, 2024 Subjective The patient is resting comfortably in bed without complaints of chest pain or dyspnea. He did have a right-sided thoracentesis performed today. Physical Exam Physical Exam: General is well-developed well-nourished black male in no acute distress. HEENT exam is negative. Neck is supple with full carotid upstrokes. There are no carotid bruits. Jugular is pressure is flat at 90 degrees. No thyromegaly. Cardiovascular exam reveals irregular irregular rhythm with distant heart sounds. No obvious murmurs. Lungs noted decreased breath sounds at the right base. Abdomen is soft. Extremities reveal intact radial pulse bilaterally. 1- 2+ pretibial edema is noted bilaterally. Results & Data Vital Signs (Past 12 Hours) Vital Signs Temp Pulse Resp BP Pulse Ox O2 Del Method 04/07/24 11:03 36.2 C L 75 19 96/72 L 93 Room Air 04/07/24 09:00 Room Air 04/07/24 07:20 36.5 C 76 19 138/90 96 Room Air 04/07/24 04:09 36.5 C 69 18 129/91 92 Room Air Diagnostic Findings bus monitor notes rate controlled atrial fibrillation. PG Care Time/CCT Total # of Minutes Spent Total Time Spent with Patient: Total time spent is greater than 50% in coordination of care (as documented) at patient's floor/unit and/or counseling patient: Coding Level of Care Code 60808 SUB INP/OBS CARE 3/50MIN Diagnoses Heart failure with reduced ejection fraction (HFrEF, <= 40%) I50.20 Atrial fibrillation I48.91
[2024-04-08 08:34] LABS: Hematocrit (blood only) 46.6 % (42.0-52.0); Hemoglobin 16.2 g/dl (14.0-18.0); Mean Corpuscular Hemoglobin 28.7 pg (25.0-34.0); Mean Corpuscular Hgb Conc 34.8 g/dL (32.0-36.0); Mean Corpuscular Volume 82.6 fL (80.0-100.0); Platelet Count 160 K/uL (130-400); RDW Coefficient of Variation 17.2 % (11.5-14.5); RDW Standard Deviation 49.9 fL (36.4-46.3); Red Blood Count 5.64 M/uL (4.70-6.10); White Blood Count 4.44 K/ul (4.8-10.8)
[2024-04-08] MEDS: ACETAMINOPHEN 325 MG TAB PO PRN (08:39)
--- NOTE | 2024-04-08 09:03 | Hospitalist Progress Note ---
Date of Service April 08, 2024 Assessment & Plan (1) CHF (congestive heart failure): Plan: Acute on chronic HFrEF Pleural effusion b/l Afib Reportedly diagnosed with Afib in August 2023 on Eliquis, metoprolol previously on amiodarone - reportedly stopped d/t perceived weakness, LE edema worsening EF 15% in August 2023 --> improved to 25-30% in October, on metoprolol succinate, entresto, bumex Presents w/ b/l pl. effusion and worsening shortness of breath hold po bumex, started IV lasix s/p thoracentesis on 04/07, will resume eliquis now hold entresto for now BNP elev > 4700 closely monitor on tele Echo ordered Cardiology consulted and discussed with - further management per cardiology monitor I/Os, daily weight replace electrolytes as needed also obtained fasting lipid panel - LDL 62, and A1c 6.8% Hx SHEILA - cpap hs CKD Cr worsening over time pt does not follow w/ nephrology Cr 2.1 on 02/27 On admission Cr 2.1 - cont. to closely monitor renal function while diuresing - current Cr 1.8 Admission and Anticipated Discharge Date Admission Date: April 05, 2024 Subjective Pt seen in follow up of CHF exacerb., pl. effusion s/p thoracentesis yesterday Pt currently sitting up in bed in NAD, denies any chest pain , also says his shortness of breath resolved No fevers, chills Discussed w/ pulm. - resume eliquis today Pt wishes to be hopefully discharged by tomorrow. Discussed w/ cardiology over the phone -will continue with diuresis today. Review of Systems Review of Systems: All systems reviewed & are unremarkable except as noted in Subjective Physical Exam Physical Exam: Constitutional: obese Min NAD Eyes: PERRL, conjunctiva e normal, anicteri c sclerae ENMT: external ear and n ose normal, oropha rynx normal Neck: supple Respiratory: Auscultation: + mi ld crackles (at ba ses)- much improve d, no wheezing Cardiovascular: Rate/Rhythm: + irr egularly irregular Gastrointestinal ( Abdomen): Inspection/Auscult ation: normal heather l sounds Percussi on/Palpation: abdo men soft (obese); abdomen nontender Musculoskeletal: LE edema- improve d, b/l, moves extr emities Skin: no rashes, warm an d dry Neurologic: PERRL, EOMI, no fa ce palsy, no dysar thria, moves extre mities Psychiatric: A+Ox3, euthymic af fect Results & Data Results & Data Vital Signs (Past 12 Hours) Vital Signs Temp Pulse Pulse Resp BP Pulse Ox O2 Del Method 04/08/24 07:41 36.5 C 74 19 132/80 97 Room Air 04/08/24 06:12 84 04/08/24 03:13 36.5 C 73 16 126/90 97 Room Air 04/07/24 23:19 36.6 C 75 18 146/91 H 93 Room Air Laboratory Results 04/08/24 Range/Units 07:41 WBC 4.44 L (4.8-10.8) K/ul RBC 5.64 (4.70-6.10) M/uL Hgb 16.2 (14.0-18.0) g/dl Hct 46.6 (42.0-52.0) % MCV 82.6 (80.0-100.0) fL MCH 28.7 (25.0-34.0) pg MCHC 34.8 (32.0-36.0) g/dL RDW Std Deviation 49.9 H (36.4-46.3) fL RDW Coeff of Ilya 17.2 H (11.5-14.5) % Plt Count 160 (130-400) K/uL MPV 12.0 (9.4-12.4) fL Sodium Pending Potassium Pending Chloride Pending Carbon Dioxide Pending Anion Gap Pending BUN Pending Creatinine Pending Est Cr Clr Drug Dosing Pending eGFR Pending BUN/Creatinine Ratio Pending Glucose Pending Calcium Pending Phosphorus Pending Magnesium Pending Medications Administered Current Inpatient Medications Acetaminophen (Acetaminophen 325 Mg Tab) 650 mg PO Q4H PRN PRN Reason: Pain or Fever Stop: 05/05/24 19:24 Last Admin: 04/08/24 08:39 Dose: 325 mg Furosemide (Furosemide 40 Mg/4 Ml Vial) 40 mg IV BID [facility] Stop: 05/06/24 08:59 Last Admin: 04/08/24 08:37 Dose: 40 mg Metoprolol Succinate (Metoprolol Succ 50mg Ext Rel Tab) 50 mg PO BID [facility] Stop: 05/05/24 22:04 Last Admin: 04/08/24 08:36 Dose: 50 mg Polyethylene Glycol (Polyethylene (Miralax) 17 Gm Pack) 17 gm PO DAILY PRN PRN Reason: Constipation Stop: 05/05/24 19:24
[2024-04-08 09:41] LABS: Calcium 8.6 mg/dl (8.6-10.3); Magnesium 1.9 mg/dl (1.7-2.4); Potassium 3.8 mmol/L (3.5-5.1)
[2024-04-08 09:46] LABS: Creatinine Clr Calc Pharmacy 34.1 ml/min; Phosphorus 2.9 mg/dl (2.5-4.9)
[2024-04-08] MEDS: APIXABAN 2.5 MG TAB PO SCH (11:45)
[2024-04-09 00:11] VITALS: RESP 19
[2024-04-09 02:55] VITALS: O2SAT 95
[2024-04-09 08:34] VITALS: TEMP 97.7
[2024-04-09 08:59] LABS: Hematocrit (blood only) 47.2 % (42.0-52.0); Hemoglobin 16.7 g/dl (14.0-18.0); Mean Corpuscular Hgb Conc 35.4 g/dL (32.0-36.0); Mean Corpuscular Volume 81.9 fL (80.0-100.0); Mean Platelet Volume 12.6 fL (9.4-12.4); Platelet Count 187 K/uL (130-400); RDW Coefficient of Variation 17.3 % (11.5-14.5); RDW Standard Deviation 49.7 fL (36.4-46.3); Red Blood Count 5.76 M/uL (4.70-6.10); White Blood Count 5.47 K/ul (4.8-10.8)
[2024-04-09 09:26] LABS: Albumin Level 3.4 gm/dl (3.4-5.0); BUN Creatinine Ratio 16.6 (10-20); Bilirubin,Total 1.2 mg/dl (0.2-1.0); Calcium 8.8 mg/dl (8.6-10.3); Creatinine Clr Calc Pharmacy 34.9 ml/min; Magnesium 1.9 mg/dl (1.7-2.4); Phosphorus 2.8 mg/dl (2.5-4.9); Potassium 3.6 mmol/L (3.5-5.1)
[2024-04-09 09:30] LABS: Bilirubin Direct 0.3 mg/dl (0-0.2)
[2024-04-09 10:55] VITALS: BP 105/70
[2024-04-09] MEDS: POTASSIUM CHLORIDE CRTAB 20 MEQ TABCR PO STA (11:26)
--- NOTE | 2024-04-09 11:47 | Cardiology Progress Note ---
Date of Service April 09, 2024 Assessment & Plan (1) Heart failure with reduced ejection fraction (HFrEF, <= 40%): (2) Atrial fibrillation: Plan Pmhx: 1. Nonischemic cardiomyopathy with severe left ventricular dysfunction and an EF in the range of 20% 2. Cardiac catheterization at [facility] 08/2023 with minimal epicardial coronary artery disease; wedge pressure of 10 mmHg; pulmonary artery pressure. 42 mmHg over 8 mmHg; RA pressure 2 mmHg: Cardiac output 2.11 L/min; LVEDP of 15 mmHg 3. New atrial fibrillation as of July 2023 (asymptomatic) 4. CKD with a baseline creatinine of 1.4 5. BPH 6. Outside echocardiogram 2023 EF 15 to 20%; global hypokinesis; moderate left atrial enlargement, now with EF of less than 15% 7. Longstanding hypertension since his teenage years 8. Severe SHEILA -- AHI 34; O2 sat Carlos 64% with O2 sat <90% 46% of the time 9. Elevated [place]/Lambda levels Dr Gomez has diuresed and also is s/p thoracentesis and is feeling much better. His kidney function has improved. He had an echocardiogram which shows apparent severe . Whether this is functional secondary to his severely reduced EF or otherwise is unclear and may take further work up which can be done outpatient. He should continue metoprolol. Low dose Entresto can be restarted. He can continue with 1 mg of Bumex daily. He is adamant that he will not take spironolactone due to it's androgen blocking properties. We have discussed multiple times now the importance of maximizing is heart failure regimen but he has not been receptive. The original plan had been to maximize his heart failure regimen and add amiodarone for cardioversion and reassess EF in 2-3 months to see if EF has improved and if not he would need an ICD. We may need to just go ahead and proceed with ICD given his inability to tolerate a maximized heart failure regimen. His heart failure is likely being exacerbated by his afib. He was not able to maintain sinus rhythm after cardioversion this spring. He felt that he was very weak on the amiodarone and so it was discontinued. He is not going to stay in sinus rhythm without an antiarrhythmic as demonstrated after his last cardioversion. Given his severely reduced EF and heart failure, he is not a candidate for any other antiarrhythmics. His frailty precludes ablation at this time. His rate is controlled on the metoprolol. We can decide on restarting in follow up once we establish that he is tolerating the Entresto. Eliquis was restarted post thoracentesis. Troponin was minimally elevated likely related to demand ischemia in the setting of heart failure. Echo was without wall motion abnormalities. He is not tolerating his CPAP and should be set up with sleep medicine for further follow up. He did not want to discuss his goals or care with palliative when Carlos met with him. Case discussed with Dr. Rodriguez. He can be discharged with labs in a week. Dr. Carter has an appt scheduled with him in April Admission and Anticipated Discharge Date Admission Date: April 05, [address] Gomez reports that he feels he is back to his baseline and would like to go home. He is less weak and less dyspneic. Review of Systems Review of Systems: All systems reviewed & are unremarkable except as noted in HPI & below Physical Exam Constitutional: WD/WN, vitals as above Respiratory: normal respiratory effort, lungs clear to auscultation Cardiovascular: Rate/Rhythm: + irregularly irregular Heart Sounds: + murmur (2/6 systolic ) Extremities: + edema (lower extremities bilaterally) Skin: no rashes, warm and dry Neurologic: moves all extremities and awake Psychiatric: A+Ox3, euthymic affect Results & Data Vital Signs (Past 12 Hours) Vital Signs Temp Pulse Resp BP Pulse Ox O2 Del Method 04/09/24 10:54 36.5 C 79 19 105/70 95 Room Air 04/09/24 08:31 36.5 C 81 19 110/77 95 Room Air 04/09/24 02:52 36.4 C L 75 19 107/68 95 Room Air 04/09/24 00:10 36.4 C L 74 19 105/69 96 Room Air
--- NOTE | 2024-04-09 11:52 | Discharge Summary ---
Date of Service April 09, 2024 Admission HPI Per Admitting Provider Pt is an 83 yo M w/ hx of HTN, Afib, CHF, SHEILA who presents with worsening shortness of breath, weakness and found to have pleural effusions on imaging in ED . Pt denies any fever, chills, chest pain. He reports some cough, that is not productive. Family obtained from patient and his who also has some printed medical records with her. Reportedly pt has had HTN for years but then in august 2023 developed Afib and was hospitalized in [place] 08/27 to 2023. Pt reports they tried to cardiovert him but not successful and he has stayed in [facility] ever since. Cardiac cath was done but no stents required per and the pt. At that time EF was found to be 15%. He was discharged on Eliquis, metoprolol, digoxin and lasix. He then followed up with cardiology in [place] in October and his EF reportedly improved to 25-30%. Pt changed cardiology group and started to follow w/ Dr. Carter. He was started on amiodarone and Entresto, spironolactone. Pt also had sleep study done and reportedly was diagnosed w/ severe SHEILA and started using CPAP. Pt stopped taking spironolactone d/t side effects. He also reports increased weakness and LE edema from amiodarone - and so that was stopped by cardiology PA on 03/01. Pt also reports that lately his HR was elevated and so he was taking metoprolol succinate 50 mg TID instead of BID. Throughout this his renal function also has been affected. Per records review on 09/15 Cr was 1.4, then 01/18 it was 1.7 and on 02/27 it was 2.1. Pt is supposed to use CPAP for SHEILA but reports he has been having difficulty tolerating it, so for 3-4 weeks he would use it on and off and then for past 4 days he would not use it at all. Pt follows w/ PCP Dr. Cortez and had CXR done on Tuesday which reportedly showed dense opacification and poss. collapse of RML, and R pl. effusion. CT chest / abdomen was planned to be done as outpt however pt had progressive shortness of breath and so presented in the ED. CT chest and abdomen/pelvis was obtained in the ED today. Admission Exam Per Admitting Provider Constitutional: WD/WN, vitals as above (obese M) Eyes: PERRL, conjunctivae normal, anicteric sclerae ENMT: external ear and nose normal, oropharynx normal Neck: + thick neck Respiratory: Auscultation: + crackles (at bases) Cardiovascular: Rate/Rhythm: + irregularly irregular Gastrointestinal (Abdomen): Inspection/Auscultation: normal bowel sounds Percussion/Palpation: abdomen soft (obese); abdomen nontender Musculoskeletal: LE edema, b/l, moves extremities Skin: no rashes, warm and dry Neurologic: PERRL, EOMI, accommodation nl, no face palsy, no dysarthria Psychiatric: A+Ox3, euthymic affect Principal Diagnosis Heart failure with reduced ejection fraction Pleural effusion s/p thoracentesis Discharge Exam Constitutional: obese Min NAD Eyes: PERRL, conjunctivae normal, anicteric sclerae ENMT: external ear and nose normal, oropharynx normal Neck: supple Respiratory: Auscultation: + mild crackles (at bases)- much improved, no wheezing Cardiovascular: Rate/Rhythm: + irregularly irregular Gastrointestinal (Abdomen): Inspection/Auscultation: normal bowel sounds Percussion/Palpation: abdomen soft (obese); abdomen nontender Musculoskeletal: LE edema- improved, b/l, moves extremities Skin: no rashes, warm and dry Neurologic: PERRL, EOMI, no face palsy, no dysarthria, moves extremities Psychiatric: A+Ox3, euthymic affect Discharge Data Allergies Allergy/AdvReac Type Severity Reaction Status Date / Time bee venom protein (honey bee) Allergy SKIN WELTS Verified 04/05/24 18:53 Consultations 04/05/24 18:32 ED Decision to Admit Stat 04/05/24 20:30 Consult Pulmonology Routine 04/06/24 07:10 Consult Cardiology Routine 04/06/24 08:45 Consult Palliative Care Routine Ordered Studies 04/05/24 16:52 CT abd pelvis wo con Stat IMPRESSION: 1. CT features which may suggest hepatic cirrhosis with mild ascites and diffuse body wall edema/anasarca. 2. Circumferential urinary bladder wall thickening with perivesicular inflammatory change which could represent acute cystitis in the proper clinical setting. 3. Large bilateral pleural effusions. Chest CT dictated under separate heading. CT chest diagnostic wo con Stat IMPRESSION: 1. Large right and moderate left pleural effusions with compressive atelectasis. 2. Moderate enlargement of the heart with aortic and coronary artery atherosclerotic disease. 3. Anasarca. Hospital Course (1) CHF (congestive heart failure): Acute on chronic HFrEF Pleural effusion b/l Afib Reportedly diagnosed with Afib in August 2023 on Eliquis, metoprolol previously on amiodarone - reportedly stopped d/t perceived weakness, LE edema worsening EF 15% in August 2023 --> improved to 25-30% in October, on metoprolol succinate, entresto, bumex Presents w/ b/l pl. effusion and worsening shortness of breath hold po bumex, started IV lasix s/p thoracentesis on 04/07, pleural fluid negative for malignancy, histiocytes and mesothelial cells present. hold entresto for now BNP elev > 4700 closely monitor on tele Echo ordered - concern for severe , severely decreased LV function, EF <15% Cardiology consulted and discussed with - further management per cardiology monitor I/Os, daily weight replace electrolytes as needed also obtained fasting lipid panel - LDL 62, and A1c 6.8% Pt responded well to diuresis and thoracentesis. He is feeling well and denies any more shortness of breath. He wishes to be discharged. Discussed with the pt and cardiology - findings of severe , low EF and need for close follow up. Cardiology recommend BMP on 04/16, and follow up on 05/03/2023. Palliative medi cine was also consulted during this hospitalization but per their note, pt refused to discuss the goals of care. Hx SHEILA - cpap hs CKD Cr worsening over time pt does not follow w/ nephrology Cr 2.1 on 02/27 On admission Cr 2.1 - cont. to closely monitor renal function while diuresing - current Cr 1.8 Total Time Total Time Spent Total Time Spent (In Minutes): 40 Discharge Plan Discharge Items Patient Disposition: Home - Self-Care Reason For Visit: SHORTNESS OF BREATH, CHF, PL. EFFUSION Discharge Diagnosis: Heart failure with reduced ejection fraction Pleural effusion s/p thoracentesis Activity: Per Instructions section Non-emergency contact: Primary Care Provider and Certified Composites Technician Call non-emergency contact if: you have any medication questions and your symptoms worsen Follow-up/Referrals: Perri Cortez [Primary Care Provider] - Romulo Carter DO [Physician] - (05/03/2023 8:45 am ) Diet: Heart Healthy Fluids: 1500ml (6 cups) Ambulatory Orders: Basic Metabolic Panel (Routine) Timeframe: 20240416 Location: Determined by Patient Ordered By: Milagros Shankar Magnesium (Routine) Timeframe: 20240416 Location: Determined by Patient Ordered By: Milagros Shankar Addtl Attending Provider Instructions: Follow up with primary care doctor and ophthalmic aide. You should be seen by by your primary care physician within 1 week. Blood work was ordered by your ophthalmic aide - please obtain on April 16, 2024. Continue your home medications as prescribed. If you have any questions or concerns regarding your medications, please contact your ophthalmic aide's office. Pending Studies at Discharge: No Stand-Alone Forms: [employer], Smoking Cessation Medications and DC Order Prescriptions: Continued sacubitril-valsartan [Entresto] 49-51 mg tablet 0.5 tab PO BID bumetanide 1 mg tablet 1 mg PO QAM Eliquis 2.5 mg Tablet 2.5 mg PO BID Changed metoprolol succinate 50 mg tablet extended release 24 hr 50 mg PO BID Qty: 0 0RF Discharge Orders: Discharge Order- CHF (Routine); Ordered 04/09/24 Ordered By: Braulio Valdivia/Other Patient Handouts: A1C, 5 Steps for Eating Healthier Admission Data Admit Date/Time: 04/05/24 19:28 Attending Provider: Braulio Butler Admit Provider: Braulio Butler Primary Care Provider: Perri Cortez Other Providers: Braulio Butler; Hussain Rose; Marilu Rodriguez; Caryn Gonzalez Other Interventions: Discharge Summary Assessment (RN) Last Done: 04/09/24 11:55
[2024-04-09 11:56] VITALS: PULSE 73
== END 2024-04-09 15:45 | disposition home or self-care (01) | DRG 291 ==
LOC: ED 15:41 → 2S 19:28